=== PATIENT | female | born 2000 | race Caucasian/White ===

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

== ENCOUNTER 2021-11-09 15:05 | Emergency (ER) | payer SELFPAY ==
--- NOTE | 2021-11-09 15:06 | ED.UPPEXIN ---
HPI - Extremity Injury (Upper) General Chief Complaint: Dizziness Stated Complaint: dizzy Time Seen by Provider: 11/09/21 15:07 Source: patient and RN notes reviewed History of Present Illness HPI narrative: Patient is a 21-year-old female presents the urgent care with complaints of dizziness and off balance for 1 month. Patient states that on she did fall down 10 stairs due to the dizziness and did hit the back of her head. Patient denies of any recurrent headaches, nausea, vomiting or vision changes since the incident. Patient does have history of migraines. States that she has been taking ibuprofen. No other acute complaints. No acute distress noted. Patient aware of the plan of care. Some parts of this dictation were generated by voice recognition software and may contain typographical and/or grammatical inaccuracies. Related Data Allergies Allergy/AdvReac Type Severity Reaction Status Date / Time banana Allergy Severe Swelling Verified 11/09/21 15:48 of Lip/Tongue/Throat Review of Systems Review of Systems: CONSTITUTIONAL: Denies fever, chills, or sweats. EYES: Denies visual changes, redness, or discharge. ENT: Denies rhinorrhea, congestion, sore throat, or otalgia. CARDIOVASCULAR: Denies chest pain, palpitations, or edema. RESPIRATORY: Denies cough or dyspnea. GASTROINTESTINAL: Denies abdominal pain, nausea, vomiting, or diarrhea. GENITOURINARY: Denies dysuria or hematuria. SKIN: Denies rash or itching. MUSCULOSKELETAL: Denies back pain, joint pain, or myalgia. NEUROLOGIC: Denies headache, numbness, or weakness. Reports of intermittent dizziness All other systems reviewed are negative, except as documented in HPI. PMFSH Comments At the time of my signature, I reviewed and agree with the nursing past medical, surgical, social, and family history. There is no relevant family history pertinent to the patient complaint. Exam Narrative: GENERAL: This is a well-nourished, well-developed patient, in no apparent distress. HEAD: normocephalic, atraumatic. EYES: PERRL. Sclera clear/white. Vision is grossly intact. EARS: External ears normal, auditory canals clear and without drainage, TMs normal without perforation. Hearing grossly intact. NOSE: External nose normal with no obvious nasal discharge, nares without redness, no rhinorrhea. THROAT: Mucous membranes moist, posterior pharynx clear. NECK: Neck supple CARDIOVASCULAR: Regular rate and rhythm without murmurs, gallops, or rubs. RESPIRATORY: Clear to auscultation. Breath sounds equal bilaterally. No wheezes, rales, or rhonchi. SKIN: warm, intact with no suspicious lesions or rash, good texture and turgor. NEURO: awake, alert, and oriented to person, place and time. There were no obvious focal neurologic abnormalities. Patient ambulates without difficulty EXTREMITIES: No clubbing, cyanosis, or edema. Course Course Level of Care: Express Care Visit Vital Signs Vital signs: Vital Signs Temperature 97.9 F 11/09/21 15:15 Pulse Rate 90 11/09/21 15:15 Respiratory Rate 20 11/09/21 15:15 Blood Pressure 123/66 11/09/21 15:15 Pulse Oximetry 100 11/09/21 15:15 Temperature 97.9 F 11/09/21 15:15 Pulse Rate 90 11/09/21 15:15 Respiratory Rate 20 11/09/21 15:15 Blood Pressure 123/66 11/09/21 15:15 Pulse Oximetry 100 11/09/21 15:15 Reviewed. Orthostatics normal MDM - Extremity Injury (Upper) MDM Narrative Medical decision making narrative: Advised patient to use meclizine as needed for dizziness. Considering you have had chronic dizziness for 1 month, suggest you follow-up with your PCP for further evaluation. Symptoms could be related to weather change, vertigo, or other such issues needing further imaging. If you develop any increase in symptoms associated with severe headaches, changes in vision, or inability to ambulate due to dizziness?go to the emergency room. Follow-up with your PCP on Thursday. Differential Diag
[2021-11-09 15:15] VITALS: BP 123/66; PULSE 90; RESP 20; TEMP 36.6; O2SAT 100
[2021-11-09 15:35] VITALS: BP 120/66; PULSE 85
[2021-11-09 15:38] VITALS: BP 132/72; PULSE 83
[2021-11-09 15:41] VITALS: BP 125/63; PULSE 83
== END 2021-11-09 15:54 | disposition home or self-care (01) ==
PROVIDERS: Emergency Provider Nurse Practitioner Family; PCP Family Medicine
DX: R42 Dizziness and giddiness (principal)
CPT/HCPCS: 99213; G0463

== ENCOUNTER 2022-11-17 11:14 | Emergency (ER) | payer SELFPAY ==
[2022-11-17 11:24] VITALS: BP 143/66; PULSE 92; RESP 20; TEMP 36.8; O2SAT 100
--- NOTE | 2022-11-17 11:24 | ED.URI ---
HPI - URI/Sore Throat General Chief Complaint: Upper Respiratory Infection Stated Complaint: Sore Throat Source: patient and RN notes reviewed History of Present Illness HPI Narrative: 22-year-old female who presents urgent care with complaints of sore throat since Thursday. Patient reports having a fever last night at home. Denies any vomiting, abdominal pain, chest pain, shortness of breath, or ear pain. Some parts of this dictation were generated by voice recognition software and may contain typographical and/or grammatical inaccuracies. Related Data Home Medications Medication Instructions Recorded Confirmed No Home Medications 11/17/22 11/17/22 Allergies Allergy/AdvReac Type Severity Reaction Status Date / Time banana Allergy Severe Swelling Verified 11/17/22 11:31 of Lip/Tongue/Throat Review of Systems Review of Systems: Pertinent positives and pertinent negatives per HPI. PMFSH Comments At the time of my signature, I reviewed and agree with the nursing past medical, surgical, social, and family history. There is no relevant family history pertinent to the patient complaint. Exam Narrative: GENERAL: This is a well-nourished, well-developed patient, in no apparent distress. HEAD: normocephalic, atraumatic. EYES: PERRL. Sclera clear/white. Vision is grossly intact. EARS: External ears normal, auditory canals clear and without drainage, TMs normal without perforation. Hearing grossly intact. NOSE: External nose normal with no obvious nasal discharge, nares without redness, no rhinorrhea. THROAT: Mucous membranes moist, posterior pharynx erythematous. Tonsils are 2+ bilaterally. No exudate noted. NECK: Neck supple, non-tender without lymphadenopathy, masses or thyromegaly. CARDIOVASCULAR: Regular rate and rhythm without murmurs, gallops, or rubs. RESPIRATORY: Clear to auscultation. Breath sounds equal bilaterally. No wheezes, rales, or rhonchi. GASTROINTESTINAL: Abdomen soft, non-tender, nondistended. Bowel sounds are active. No hepato-splenomegaly, or palpable masses. No guarding. SKIN: warm, intact with no suspicious lesions or rash, good texture and turgor. NEURO: awake, alert, and oriented to person, place and time. There were no obvious focal neurologic abnormalities. EXTREMITIES: No clubbing, cyanosis, or edema. No joint tenderness, effusion, or edema noted. BACK: Nontender without deformity or crepitance. No flank tenderness. Course Course Level of Care: Express Care Visit Vital Signs Vital signs: Vital Signs Temperature 98.2 F 11/17/22 11:24 Pulse Rate 92 11/17/22 11:24 Respiratory Rate 20 11/17/22 11:24 Blood Pressure 143/66 H 11/17/22 11:24 Pulse Oximetry 100 11/17/22 11:24 Oxygen Delivery Room Air 11/17/22 11:24 Temperature 98.2 F 11/17/22 11:24 Pulse Rate 92 11/17/22 11:24 Respiratory Rate 20 11/17/22 11:24 Blood Pressure 143/66 H 11/17/22 11:24 Pulse Oximetry 100 11/17/22 11:24 Oxygen Delivery Room Air 11/17/22 11:24 Reviewed MDM - URI/Sore Throat MDM Narrative Medical decision making narrative: Rapid strep is negative in the office; however we will send to the lab for confirmation; there is a small percentage chance that it can come back positive; if it is, we will call you in 2-3days; and your prescription will be call in to your pharmacy. However, there is NO indication for antibiotic at this time. -Increase your fluids and Vitamin C. -Oral rinses such as: Salt water gargles and/or may use topical anesthetic (eg. Chloraseptic spray) or lozenges to relieve dryness or throat pain. -Take tylenol and ibuprofen as needed for pain and fever as directed. -Frequent hand washing or hand underwriting intern is one of the best ways to prevent spread of infection. -Follow up with primary care provider in 2-3 days if condition is not improving or seek ER visit if your child starts breathing fast/has trouble breathing, is not drinking enough fluids, muffle voice, di
== END 2022-11-17 12:00 | disposition home or self-care (01) ==
PROVIDERS: Emergency Provider Nurse Practitioner Family; PCP Family Medicine
DX: J02.9 Acute pharyngitis, unspecified (principal)
CPT/HCPCS: 87081; 87880; 99213; G0463

== ENCOUNTER 2023-04-24 16:29 | Emergency (ER) | payer SELFPAY ==
--- NOTE | 2023-04-24 16:31 | ED.SKABFB ---
HPI - Skin/Abscess/Foreign Bdy General Chief complaint: Skin/Abscess/Foreign Body Stated complaint: rash on back /stomach Time Seen by Provider: 04/24/23 16:30 Source: patient Mode of arrival: ambulatory Limitations: no limitations History of Present Illness HPI narrative: Mary is a 23-year-old female patient presenting to the clinic today with complaints of a rash on her back, arms, and stomach 3 weeks. She reports No known fever chills. No new changes in soaps or shampoos. She reports she did get a new cat. Also states that they are renovating her duplex next to hers. No one else has the same rash. Related Data Allergies Allergy/AdvReac Type Severity Reaction Status Date / Time banana Allergy Severe Swelling Verified 04/24/23 16:49 of Lip/Tongue/Throat Review of Systems Review of Systems: Pertinent positives per HPI. Patient denies any fever, chills, headache, visual changes, dizziness, cough, runny nose, sore throat, shortness of breath, chest pain, palpitations, nausea, vomiting, diarrhea, constipation, abdominal pain, or any urinary issues. PMFSH Comments At the time of my signature, I reviewed and agree with the nursing past medical, surgical, social, and family history. There is no relevant family history pertinent to the patient complaint. Exam Narrative: General: Well-developed, well nourished, in no apparent distress Head: Normocephalic, atraumatic. Cardio: Regular rate and rhythm, s1 and s2 normal, no murmur appreciated. Resp: Clear to auscultation bilaterally, no rhonchi, rales, wheezing or rubs. Integumentary: [place], warm, and dry, intact without lesion, red, raised, scaly crusty rash that is itchy to the abdomen and to the mid upper back also has rash to the forearms and upper arms bilaterally. Does have areas that appear to be possibly burrowing. Course Course Emergency Course: Portions of this record may have been created with voice recognition software. Level of Care: Express Care Visit Vital Signs Vital signs: Vital signs reviewed MDM - Skin/Abscess/Foreign Bdy MDM Narrative Medical decision making narrative: At the time of visit patient is resting comfortably on exam table. I suspect patient has contact dermatitis versus scabies infestation. Will send in prescription for prednisone, triamcinolone cream, and permethrin cream. Supportive measures were discussed with the patient she voiced understanding of the discharge instructions agrees to treatment plan. Differential Diagnosis Differential diagnosis: Likely abscess of skin or subcutaneous tissue, urticaria, allergic reaction to drug, cellulitis, eczema, insect bites, impetigo and contact dermatitis Discharge Plan Discharge Clinical Impression: Dermatitis Patient Disposition: Home, Self-Care Condition: Stable Instructions: Antibiotic Form, Scabies (ED), Dermatitis (ED) Additional Instructions: Apply triamcinolone cream as directed Take prednisone as directed Avoid taking hot showers. Apply permetherine cream as prescribed. Avoid scratching and this causes rash to spread May take benadryl 25-50mg every 6 hours as needed for itching. Follow up with your PCP in 3-5 days if symptoms persist or sooner if they worsen Go to the Emergency Room if symptoms worsen- fever, rash spreading with treatment, shortness of breath, tongue swelling, drooling, or chest pain Prescriptions: New triamcinolone acetonide 0.1 % cream 1 applic topical BID 7 Days Qty: 30 0RF prednisone 10 mg tablet 10 mg PO DAILY Qty: 30 0RF Rx Instructions: 60mg po daily on day 1, 40mg po daily on days 2-4, 30mg po daily on days 5-6, 20mg po daily on days 7-8, 10mg po daily on days 9-10 permethrin 5 % cream 1 applic topical Q14D Qty: 60 0RF Rx Instructions: apply second treatment 14 days after first treatment if live lice remain Follow-up/Referrals: Bobo,Donald Gore MD [Primary Care Provider] -
[2023-04-24 16:46] VITALS: BP 131/82; PULSE 102; RESP 18; TEMP 36.2; O2SAT 99
== END 2023-04-24 16:55 | disposition home or self-care (01) ==
PROVIDERS: Emergency Provider Nurse Practitioner Family; PCP Family Medicine
DX: L30.9 Dermatitis, unspecified (principal)
CPT/HCPCS: 99213; G0463

== ENCOUNTER 2023-06-25 10:35 | Emergency (ER) | payer SELFPAY ==
[2023-06-25 10:43] VITALS: BP 126/70; PULSE 105; RESP 18; TEMP 36.4; O2SAT 97
--- NOTE | 2023-06-25 10:43 | ED.EAR ---
HPI - Ear Problem General Stated complaint: Right Ear Pain Source: patient and RN notes reviewed History of Present Illness HPI Narrative: 23 yo F presents to urgent care with complaints of bilateral ear aches and the feeling the hearing is muffled. Pt reports some congestion. States this morning, she noticed a little blood in her right ear. Denies any fevers, chills, sore throat, or other complaints. Related Data Allergies Allergy/AdvReac Type Severity Reaction Status Date / Time banana Allergy Severe Swelling Verified 06/25/23 10:48 of Lip/Tongue/Throat Review of Systems Review of Systems: CONSTITUTIONAL: Denies fever, chills, or sweats. EYES: Denies visual changes, redness, or discharge. ENT: Denies sore throat CARDIOVASCULAR: Denies chest pain, palpitations, or edema. RESPIRATORY: Denies cough or dyspnea. GASTROINTESTINAL: Denies abdominal pain, nausea, vomiting, or diarrhea. GENITOURINARY: Denies dysuria or hematuria. SKIN: Denies rash or itching. MUSCULOSKELETAL: Denies back pain, joint pain, or myalgia. NEUROLOGIC: Denies headache, numbness, or weakness. Pertinent positives per HPI. PMFSH Comments At the time of my signature, I reviewed and agree with the nursing past medical, surgical, social, and family history. There is no relevant family history pertinent to the patient complaint. Exam Narrative: GENERAL: This is a well-nourished, well-developed patient, in no apparent distress. HEAD: normocephalic, atraumatic. EYES: Sclera clear/white. Vision is grossly intact. EARS: External ears normal, auditory canals clear and without drainage, TMs normal without perforation. Hearing grossly intact. Mild clear fluid behind TM NOSE: External nose normal with no obvious nasal discharge, nares without redness, no rhinorrhea. THROAT: Mucous membranes moist, posterior pharynx clear. NECK: Neck supple, non-tender without lymphadenopathy, masses or thyromegaly. CARDIOVASCULAR: Regular rate and rhythm without murmurs, gallops, or rubs. RESPIRATORY: Clear to auscultation. Breath sounds equal bilaterally. No wheezes, rales, or rhonchi. GASTROINTESTINAL: Abdomen soft, non-tender, nondistended. Bowel sounds are active. No hepato-splenomegaly, or palpable masses. No guarding. SKIN: warm, intact with no suspicious lesions or rash, good texture and turgor. NEURO: awake, alert, and oriented to person, place and time. There were no obvious focal neurologic abnormalities. EXTREMITIES: No clubbing, cyanosis, or edema. No joint tenderness, effusion, or edema noted. BACK: Nontender without deformity or crepitus. No flank tenderness. Course Course Level of Care: Express Care Visit Vital Signs Vital signs: Vital Signs Temperature 97.5 F L 06/25/23 10:43 Pulse Rate 105 H 06/25/23 10:43 Respiratory Rate 18 06/25/23 10:43 Blood Pressure 126/70 06/25/23 10:43 Pulse Oximetry 97 06/25/23 10:43 Oxygen Delivery Room Air 06/25/23 10:43 Temperature 97.5 F L 06/25/23 10:43 Pulse Rate 105 H 06/25/23 10:43 Respiratory Rate 18 06/25/23 10:43 Blood Pressure 126/70 06/25/23 10:43 Pulse Oximetry 97 06/25/23 10:43 Oxygen Delivery Room Air 06/25/23 10:43 Reviewed Medical Decision Making MDM Narrative Medical decision making narrative: Use the Flonase twice a day on each side. Follow up with your PCP next week if symptoms persist. Differential Diagnosis Differential Diagnosis: AOM, cerumen impaction, middle ear effusion Vital Signs Vital Signs: Vital Signs Temperature 97.5 F L 06/25/23 10:43 Pulse Rate 105 H 06/25/23 10:43 Respiratory Rate 18 06/25/23 10:43 Blood Pressure 126/70 06/25/23 10:43 Pulse Oximetry 97 06/25/23 10:43 Oxygen Delivery Room Air 06/25/23 10:43 Temperature 97.5 F L 06/25/23 10:43 Pulse Rate 105 H 06/25/23 10:43 Respiratory Rate 18 06/25/23 10:43 Blood Pressure 126/70 06/25/23 10:43 Pulse Oximetry 97 06/25/23 10:43 Oxy
[2023-06-25 10:58] VITALS: BP 126/70; PULSE 105; RESP 18; TEMP 36.4; O2SAT 97
== END 2023-06-25 10:55 | disposition home or self-care (01) ==
PROVIDERS: Emergency Provider Nurse Practitioner Family
DX: H92.03 Otalgia, bilateral (principal)
CPT/HCPCS: 99213; G0463

== ENCOUNTER 2024-01-24 11:55 | Emergency (ER) | payer OTHER, SELFPAY ==
[2024-01-24 12:12] VITALS: BP 131/67; PULSE 101; RESP 20; TEMP 37.2; O2SAT 98
--- NOTE | 2024-01-24 13:10 | ED.EAR ---
HPI - Ear Problem General Chief complaint: Ear Stated complaint: left ear Time Seen by Provider: 01/24/24 12:55 Source: patient, RN notes reviewed and old records reviewed Mode of arrival: ambulatory Limitations: no limitations History of Present Illness HPI Narrative: 23 year old female who presents to [facility] care with complaints of left ear pain 5 days, reports that it feels clogged and painful with symptoms progressively worsening, has not been swimming. Patient denies any cough or any shortness of breath, admits to some sinus congestion and drainage and some low grade temperatures. MD Complaint: ear pain Location: left ear Duration: constant Severity: severe Discharge from ear: Reports no Treatment prior to arrival: oral analgesic (ibuprofen) Related Data Home Medications Medication Instructions Recorded Confirmed amitriptyline 10 mg tablet 10 mg PO DAILY 01/24/24 01/24/24 escitalopram oxalate 10 mg tablet 10 mg PO DAILY 01/24/24 01/24/24 sumatriptan succinate 50 mg tablet See Rx Instructions .Route .COMPLEX 01/24/24 01/24/24 Allergies Allergy/AdvReac Type Severity Reaction Status Date / Time banana Allergy Severe Swelling Verified 01/24/24 12:28 of Lip/Tongue/Throat Review of Systems Review of Systems: CONSTITUTIONAL:Positive for malaise, chills, sweats, low grade fever. EYES: Denies visual changes, redness, or discharge. ENT: Reports rhinorrhea, congestion, sinus pain,left otalgia and no sore throat CARDIOVASCULAR: Denies chest pain, palpitations, or edema. RESPIRATORY: Reports no cough.? Denies dyspnea. GASTROINTESTINAL: Denies abdominal pain, nausea, vomiting, diarrhea SKIN: Denies rash or itching. MUSCULOSKELETAL: Denies myalgia. NEUROLOGIC: Denies headache. All systems reviewed & are unremarkable except as noted in HPI and below PMFSH Past Medical History Medical History (Updated 01/26/24 @ 08:02 by Leeanna Bonilla NP) Depression Hx of migraines Surgical History Surgical History (Updated 01/26/24 @ 07:59 by Leeanna Bonilla NP) Hx of elbow surgery internal fixation with screws left Social History Social History (Updated 01/26/24 @ 08:00 by Leeanna Bonilla NP) Smoking status: Never smoker Alcohol intake: current Alcohol use details: social Substance use type: does not use Living arrangements: with family Gender identity (if verbalized by the patient): Female Comments At time of signature, agree with nursing past medical, surgical, social and family history. There is no relevant family history pertinent to the presenting complaint Exam Narrative: GENERAL: Well-appearing, well-nourished, and in no acute distress. HEAD: Normocephalic EYES: PERRLA, conjunctivae clear ENT: Nares clear, turbinates edematous and erythematous, clear discharge. Mucous membranes moist.Left TM red and bulging some excoriation of left ear canal with no acute swelling, Right TM pearly cantu with dull light reflex; no tragal tenderness. Oropharynx erythematous without lesions. Tonsils not enlarged and without exudate, no drooling, no hoarseness, no trismus, uvula midline.post nasal drainage noted NECK: Supple. No lymphadenopathy CHEST: Clear to auscultation, breath sounds equal. No wheezing, rhonchi, rales, or stridor. No respiratory distress, speaks in full sentences.[id number]% on room air HEART: Regular rate and rhythm. No murmur heard. SKIN: Warm, dry, no rash. NEURO: Alert and oriented x3. PSYCH: Normal mood and affect Course Course Emergency Course: Patient is aware of diagnosis, understands and agrees to treatment plan.? Anticipatory guidance given.? Patient agrees to follow-up as directed and is aware of reasons to seek care at the emergency department. Portions of this record may have been created with voice recognition software Level of Care: Express Care Visit Vital Signs Vital signs: Vital Signs Temperature 37.2 C 01/24/24
== END 2024-01-24 13:40 | disposition home or self-care (01) ==
PROVIDERS: Emergency Provider Registered Nurse; PCP Family Medicine
DX: H66.92 Otitis media, unspecified, left ear (principal); H60.92 Unspecified otitis externa, left ear; F32.A Depression, unspecified
CPT/HCPCS: 99213; G0463

== ENCOUNTER 2024-09-23 17:44 | Emergency (ER) | payer OTHER, SELFPAY ==
--- NOTE | ~2024-09-23 | XR_ITS ---
HISTORY: pain/bruising, no new injury COMPARISON: None TECHNIQUE: 3 views of the left elbow were performed FINDINGS: No acute fracture is identified. Multiple screw fixation is identified with extra-articular bone formation, likely chronic. No elevation of the anterior or posterior fat pads are identified to suggest an acute supracondylar f racture. Overlying soft tissues are unremarkable. Bone mineralization is age-appropriate. IMPRESSION: No acute findings within the left elbow, as detailed above. Reviewed, dictated and finalized at location A. RACT ASSISTANT
--- OUTSIDE RECORDS SUMMARY | 2024-09-23 17:46 | XMS_ITS | Clinical Summary ---
Author Organization [facility] Address [address] [place] [address] Care Team Providers Care Gauger Chief Name Role Phone Donald Broussard MD Primary Care Provider [phone] Allergies Active Allergy Reactions Criticality Noted Date Comments Banana Edema,Anaphylaxis High 09/24/2018 Cantaloupe Edema Medium 09/24/2018 Medications bacitracin 500 unit/gram ointment Apply topically 2 (two) times a day 120 g 3 Active Additional Information Patient not taking.Reported on 11/02/2023 Slynd tablet tablet Take 1 each (4 mg total) by mouth daily Active HYDROcodone-cindy taminophen (NORCO) 5-325 mg per tabletIndicatio ns:Pain Take 1 tablet by mouth every 6 (six) hours as needed for pain 20 tablet 4 Active ibuprofen (ADVIL,MOTRIN) 600 mg tabletIndicatio ns:Pain Take 1 tablet (600 mg total) by mouth 3 (three) times a day Take with food. 30 tablet 4 Active Active Problems Problem Noted Date Diagnosed Date RICK (generalized anxiety disorder) 11/02/2023 Psychophysiological insomnia 11/02/2023 Migraine headache 11/01/2014 Encounters Date Type Department Care Team Description 07/23/2024 10:51 PM HAND OUTSIDE CUTTER - 07/24/2024 1:29 AM HAND OUTSIDE CUTTER Emergency [facility] Emergency Department [address] [place] [address] Miguel Godoy MD Abdominal pain (Primary Dx); Cyst of right ovary; Bilious vomiting with nausea Discharge Disposition: Discharge to home or self care 06/27/2024 Telephone [facility]ics [facility] Sports Medicine [address] [place] [phone] Ann Cao MA 06/24/2024 10:13 PM HAND OUTSIDE CUTTER - 06/24/2024 11:28 PM HAND OUTSIDE CUTTER Emergency [facility] Emergency Department [address] [place] [address] Donald Grove MD Elbow pain, chronic, left (Primary Dx); 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) Discharge Disposition: Discharge to home or self care 06/23/2024 Telephone [facility] Family Medicine at [place] [address] [place] [phone] Donald Broussard MD 1st no show letter sent 06/23/24 from Last 3 Months Immunizations Name Administration Dates Next Due DTaP 03/25/2002,2001,2001 DTaP 5 Pertussis 02/24/2011 HPV9 06/05/2020 Hep A, Pediatric 09/30/2011,02/24/2011 Hep B, Adolescent or Pediatric 2,05/02/2011,02/24/2011,03/25,2001,2001 HiB 03/25/2002,2001,2001 IPV 08/26/2012, 2,02/24/2011,11/04,2001 Influenza, Live, Intranasal, Quadrivalent 05/02/2013 Influenza, Quadrivalent, Spl it, Preservative Free, Intramuscular 06/03/2021,06/05/2020 Influenza, Trivalent, Preser vative Free, Intramuscular 08/26/2012,05/02/2011 Influenza, Unspecified 05/10/2023(Deferr ed: Patient Refused),05/10/2022(Deferred: Patient Refused) MMR 02/24/2011 MMRV 09/30/2011 Meningococcal B, OMV (Bexsero) 06/05/2020 Meningococcal MCV4P (Menactra) 06/05/2020 Td, adsorbed 08/26/2012 Tdap 07/14/2023,05/02/2011 Varicella 02/24/2011 Surgical History Surgery Date Site/Laterality Comments ARM SURGERY 08/26/2023 Left screws CHOLECYSTECTOMY Medical History Medical History Date Comments Migraines Anxiety 2019 Depression 2019 Family History Medical History Relation Name Comments Depression Brother Serafin Pereyra Arthritis Father Abimael Pereyra Migraines Father Abimael Pereyra Family histo ry of migraine headaches - (Added by TW Conv) Rashes / Skin problems Father Abimael Pereyra Cancer Maternal Grandmother Ivania Brewer Diabetes Maternal Grandmother Ivania Brewer Depression Mother Marty Grullon Diabetes Mother Marty Grullon Mental illness Mother Marty Grullon Migraines Mother Marty Grullon Family histor y of migraine headaches - (Added by TW Conv) Epilepsy Sister 1 Family history of epilepsy - (Added by TW Conv) Learning disabilities Sister 2 Antonio Hortamitt Relation Name Status Comments Brother Serafin Pereyra Father Abimael Pereyra Maternal Grandmother Ivania Brewer Mother Marty Grullon Sister 1 Sister 2 Antonio Pereyra Social History Tobacco Use Types Packs/Day Years Used Date Smoking Tobacco: Former Vaping Q uit: 08/10/2023 Smokeless Tobacco: Never Tobacco Cessation:Counseling Given: Not Answered Alcohol Use Standard Drinks/Week Comments Never 0 (1 standard drink = 0.6 oz pur e alcohol) AUDIT-C Answer Date Recorded Q1: How often do you have a drink containing alc ohol? Monthly or less 04/18/2024 Q2: How many drinks containi ng alcohol do you have on a typical day when you are drinking? 1 or 2 04/18/2024 Frequency of Binge Drinking Not on file 04/2024 PHQ-2 Answer Date Recorded PHQ-2 Total Score (If total score is 3 or more points, staff should administer the PHQ-9) 4 12/25/2022 Personal Safety Answer Date Recorded Have you ever been in or are you currently in a harmful physical or emotional relationship or is someone making you feel afraid or unsafe? Denies 07/23/2024 Comments No Sex and Gender Information Value Date Recorded Sex Assigned at Not on file Legal Sex Female 11:20 AM HAND OUTSIDE CUTTER Gender Identity Female 12/23/2022 9:46 PM CDT Sexual Orientation Straight 12/23/2022 9: 46 PM CDT Obstetrics History Last Filed Vital Signs Vital Sign Reading Time Taken Comments Blood Pressure 140/80 07/24/2024 1:15 AM HAND OUTSIDE CUTTER Pulse 88 07/24/2024 1:15 AM HAND OUTSIDE CUTTER Temperature 36.8 C (98.2 F) 07/23/2024 10:48 PM HAND OUTSIDE CUTTER Respiratory Rate 18 07/23/2024 10:48 PM HAND OUTSIDE CUTTER Oxygen Saturation 97% 07/24/2024 1:15 AM HAND OUTSIDE CUTTER Inhaled Oxygen Concentration - - Weight 99.8 kg (220 lb) 07/23/2024 10:48 PM HAND OUTSIDE CUTTER Height 167.6 cm (5' 6 ) 07/23/2024 10:48 PM HAND OUTSIDE CUTTER Body Mass Index 35.51 07/23/2024 10:48 PM HAND OUTSIDE CUTTER Plan of Treatment Health Maintenance Due Date Last Done Comments Cervical Cancer Screening 2001 Chlamydia and Gonorrhea (GC/CT) Screening 2001 Hepatitis C Screening 2001 Regular Well Visit/Exam 18-64 2019 HPV Vaccines (2 - 3-dose series) 07/03/2020 06/05/2020 Meningococcal B Vaccine (2 of 2 - Risk Bexsero 2-dose series) 07/03/2020 06/05/2020 Depression Screening 12/26/2023 12/25/2022, 12/26/19 23 Covid-19 Vaccine (2 - season) 2024 11/27/2020 Influenza Vaccine (#1) 2024 , 06/05/2020, 05/02/2013, Additional history exists DTaP/Tdap/Td Vaccine (8 - Td or Tdap) 07/14/2033 07/14/2023, 08/26/2012, 05/02/2011, Additional history exists Varicella Vaccines Completed 09/30/2011, 02/24/2011 Pneumococcal vaccine <65 Aged Out No longer eligible based on patient's age to complete this topic Procedures Procedure Name Priority Date/Time Associated Diagnosis Comments CT ABDOMEN PELVIS W CONTRAST ED 07/24/2024 12:43 AM HAND OUTSIDE CUTTER URINALYSIS, MICROSCOPIC ONLY STAT 07/23/2024 11:54 PM HAND OUTSIDE CUTTER HCG, URINE, QUALITATIVE STAT 07/23/2024 11:54 PM HAND OUTSIDE CUTTER URINALYSIS AND REFLEX TO MICROSCOPIC AND CULTURE STAT 07/23/2024 11:54 PM HAND OUTSIDE CUTTER CREATINE KINASE (CK), TOTAL STAT 07/23/2024 11:12 PM HAND OUTSIDE CUTTER EGFR STAT 07/23/2024 11:11 PM HAND OUTSIDE CUTTER DIFFERENTIAL AUTO STAT 07/23/2024 11: 11 PM HAND OUTSIDE CUTTER LACTATE Routine 07/23/2024 11:11 PM HAND OUTSIDE CUTTER LIPASE STAT 07/23/2024 11:11 PM HAND OUTSIDE CUTTER MAGNESIUM Routine 07/23/2024 11:11 PM HAND OUTSIDE CUTTER COMPREHENSIVE METABOLIC PANEL STAT 07/23/2024 11:11 PM HAND OUTSIDE CUTTER CBC WITH AUTO DIFFERENTIAL STAT 07/23/2024 11:11 PM HAND OUTSIDE CUTTER INFLUENZA A/B, RSV, AND COVID-19 PCR Routine 07/23/2024 11:11 PM HAND OUTSIDE CUTTER XR ELBOW LEFT 2 OR MORE VIEWS ED 06/24/2024 11:00 PM HAND OUTSIDE CUTTER from Last 3 Months Results * CT Abdomen Pelvis W Contrast (07/24/2024 12:43 AM HAND OUTSIDE CUTTER) Anatomical Region Laterality Modality Body N/A Computed Tomogra phy 07/24/2024 12:5 6 AM HAND OUTSIDE CUTTER Narrative 07/24/2024 1:00 AM HAND OUTSIDE CUTTER EXAM DESCRIPTION: CT ABDOMEN PELVIS W CONTRAST REASON FOR STUDY: LUQ abdominal pain, LUQ pain Pt vomiting bile x 3 days states unable to keep any food or water down. Hx of cholecystectomy No hx of cancer TECHNIQUE: CT scan of the abdomen and pelvis performed with intravenous and without oral contrast using helical scanning technique with dynamic intravenous contrast injection. Reconstructed coronal and sagittal MPR images reviewed. All images stored on PACS. Automated exposure control was used as a dose optimization technique for this examination. CONTRAST TYPE/DOSE: 100mL of IOVERSOL 350 MG IODINE/ML INTRAVENOUS SYRINGE injected via intravenous COMPARISON: 03/14/2024 FINDINGS: LOWER CHEST: No significant pulmonary abnormalities. No effusion. LIVER: Normal size. No identified cystic or solid masses. GALLBLADDER: Surgically absent. BILE DUCTS: No intrahepatic or extrahepatic ductal dilatation. SPLEEN: Enlarged at 14.3 cm. PANCREAS: No identified cystic or solid masses. No significant calcifications. No adjacent inflammation or peripancreatic fluid collections. Pancreatic duct not dilated. ADRENALS: Normal. KIDNEYS/URINARY TRACT: No identified significant cystic or solid masses. No visualized stones. No hydronephrosis or hydroureter. Symmetric enhancement. Urinary bladder is unremarkable. GI: No dilated bowel loops. No obvious wall thickening. Normal appendix. No significant diverticular disease. PERITONEUM: No ascites or free air. RETROPERITONEUM: No mass or adenopathy. REPRODUCTIVE: 3.5 cm cyst right ovary. VASCULATURE: No abdominal aortic aneurysm. MUSCULOSKELETAL: No significant abnormality. OTHER: 2.6 cm periumbilical hernia containing only fat. IMPRESSION: Surgical absence of the gallbladder. Mild splenomegaly. 3.5 cm cyst right ovary. 2.6 cm periumbilical hernia containing only fat. THIS IS AN ELECTRONICALLY VERIFIED FINAL REPORT 07/24/2024 1:00 AM - Electronically signed by Agustín Pond M.D. KT: SHAN Report ID: [id number] Reading Location: [id number] Procedure Note Agustín oPnd MD - 07/24/2024 EXAM DESCRIPTION: CT ABDOMEN PELVIS W CONTRAST REASON FOR STUDY: LUQ abdominal pain, LUQ pain Pt vomiting bile x 3 days states unable to keep any food or water down.Hx of cholecystectomy No hx of cancer TECHNIQUE: CT scan of the abdomen and pelvis performed with intravenousand without oral contrast using helical scanning technique with dynamic intravenous contrast injection. Reconstructed coronal and sagittal MPRimages reviewed. All images stored on PACS. Automated exposure control was usedas a dose optimization technique for this examination. CONTRAST TYPE/DOSE: 100mL of IOVERSOL 350 MG IODINE/ML INTRAVENOUSSYRINGE injected via intravenous COMPARISON: 03/14/2024 FINDINGS: LOWER CHEST: No significant pulmonary abnormalities. No effusion. LIVER: Normal size. No identified cystic or solid masses. GALLBLADDER: Surgically absent. BILE DUCTS: No intrahepatic or extrahepatic ductal dilatation. SPLEEN: Enlarged at 14.3 cm. PANCREAS: No identified cystic or solid masses. No significant calcifications. No adjacent inflammation or peripancreatic fluidcollections. Pancreatic duct not dilated. ADRENALS: Normal. KIDNEYS/URINARY TRACT: No identified significant cystic or solid masses.No visualized stones. No hydronephrosis or hydroureter. Symmetricenhancement. Urinary bladder is unremarkable. GI: No dilated bowel loops. No obvious wall thickening. Normalappendix. No significant diverticular disease. PERITONEUM: No ascites or free air. RETROPERITONEUM: No mass or adenopathy. REPRODUCTIVE: 3.5 cm cyst right ovary. VASCULATURE: No abdominal aortic aneurysm. MUSCULOSKELETAL: No significant abnormality. OTHER: 2.6 cm periumbilical hernia containing only fat. IMPRESSION: Surgical absence of the gallbladder. Mild splenomegaly. 3.5 cm cyst right ovary. 2.6 cm periumbilical hernia containing only fat. THIS IS AN ELECTRONICALLY VERIFIED FINAL REPORT 07/24/2024 1:00 AM - Electronically signed by Agustín Pond M.D. KT: KT Report ID: [id number] Reading Location: [place] [address] Miguel Godoy MD IMG CT PROCEDURES Final Resul t * (ABNORMAL) Urinalysis reflex to microscopic and culture Urine, bladder (07/23/2024 11:54 PM HAND OUTSIDE CUTTER) Color, ur Yellow Yellow Clarity, ur Clear Clear [facility] ([place]) Specific gravity, ur 1.036(H) 1.003 - 1.030 [facility] ([place]) pH, urine 6.5 [facility] ([place]) Comment: Interpretive Data U rine pH is affected by diet, medications, systemic acid-base disturbances, and renal tubular function. pH may affect urinary stone formation. For example, urine pH below 6.0 may help reduce the tendency for calcium phosphate stones and pH greater than 6.0 may reduce the tendency for uric acid stone formation. Source: [facility] [employer] Current Interpretive Data was last revised on 2017 Protein, ur ql 1+(A) Negative [facility] ([place]) Glucose, ur ql Negative Negative [facility] ([place]) Ketones, ur Trace Negative [facility] ([place]) Bilirubin, ur Negative Negative [facility] ([place]) Blood, ur 1+(A) Negative [facility] ([place]) Urobilinogen, ur >=8.0(A) <2.0 mg/dL [facility] ([place]) Nitrite, ur Negative Negative [facility] ([place]) Leukocyte esterase, ur Negative Negative [facility] ([place]) UA reflex comment Reflex to microscopic UA will be performed. [facility] ([place]) Urine, bladder 07/23/2024 11 :54 PM HAND OUTSIDE CUTTER 07/23/2024 11:56 PM HAND OUTSIDE CUTTER us Miguel Godoy MD LAB MICROBIOLOGY - GENERAL OR DERABLES Final Result Performing Organization Address [facility] Co de Phone Number [facility] ([place]) [address] [facility] [place] [address] * hCG, urine, qualitative (07/23/2024 11:54 PM HAND OUTSIDE CUTTER) HCG, ur Negative Negative Urine 07/23/2024 11:5 4 PM HAND OUTSIDE CUTTER 07/23/2024 11:56 PM HAND OUTSIDE CUTTER us Miguel Godoy MD LAB URINE ORDERABLES Final Re sult Performing Organization Address City/[facility]/ZIP Co de Phone Number [facility] ([place]) [address] Department [place] [address] * (ABNORMAL) Urinalysis, microscopic only (07/23/2024 11:54 PM HAND OUTSIDE CUTTER) WBC, ur 0-5 0 - 5 /HPF RBC, ur 21-50(A) 0 - 2 /HPF [facility] ([place]) Epithelial cells, squamous, ur 1-5 0 - 5 /HPF [facility] ([place]) Bacteria, ur Trace(A) [facility] ([place]) Mucous, ur Present(A) [facility] ([place]) Culture Reflex Comment Reflex conditions for urine culture (WBC >10) not met. [facility] ([place]) Urine, bladder 07/23/2024 11 :54 PM HAND OUTSIDE CUTTER 07/23/2024 11:56 PM HAND OUTSIDE CUTTER Miguel Godoy MD LAB URINE ORDERABLES Final Re sult Performing Organization Address City/[facility]/ZIP Co de Phone Number [facility] ([place]) [address] [place] [address] * Creatine kinase (CK), total (07/23/2024 11:12 PM HAND OUTSIDE CUTTER) Pathologist [facility] CK 73 30 - 200 Units/L Blood 07/23/2024 11:1 2 PM HAND OUTSIDE CUTTER 07/23/2024 11:24 PM HAND OUTSIDE CUTTER us Miguel Godoy MD LAB BLOOD ORDERABLES Final Re sult Performing Organization Address City/[facility] Co de Phone Number [facility] ([place]) [address] [place] [address] Department [place] [address] * Influenza A/B, RSV, and COVID-19 PCR Nasopharyngeal (07/23/2024 11:11 PM HAND OUTSIDE CUTTER) Pathologist [facility] COVID-19 RNA Negative Negative Influenza A RNA Negative Negative [facility] ([place]) Influenza B RNA Negative Negative [facility] ([place]) RSV RNA Negative Negative [facility] ([place]) Comment: Interpretive data: Testing performed by [facility]. This test is performed using the [employer] Xpert Xpress CoV-2/Flu/RSV plus assay. This is a multiplex, real- time reverse transcriptase PCR assay intended for the qualitative detection of nucleic acid from SARS-CoV-2, influenza A, influenza B, and respiratory syncytial virus. This assay has been cleared by the [place] Food and Drug administration. The performance characteristics have been verified by the [facility]. Results must be considered in the clinical context, and a negative result does not rule out infection. Interpretive Data last revised 2023 Nasopharyngeal 07/23/2024 11 :11 PM HAND OUTSIDE CUTTER 07/23/2024 11:24 PM HAND OUTSIDE CUTTER Narrative [facility] ([place]) - 07/24/2024 12:04 AM HAND OUTSIDE CUTTER Is the Patient experiencing symptoms consistent with COVID?->Yes Miguel Godoy MD LAB MICROBIOLOGY - GENERAL OR DERABLES Final Result [facility] ([place]) [address] [place] [address] [place] [address] * Lactate (07/23/2024 11:11 PM HAND OUTSIDE CUTTER) Lactate 0.7 0.7 - 2.0 mmol/L Blood 07/23/2024 11:1 1 PM HAND OUTSIDE CUTTER 07/23/2024 11:28 PM HAND OUTSIDE CUTTER Miguel Godoy MD LAB BLOOD ORDERABLES Final Re sult Performing Organization Address City/[facility]/ZIP Co de Phone Number [facility] ([place]) [address] [place] [address] [place] [address] * eGFR (07/23/2024 11:11 PM HAND OUTSIDE CUTTER) eGFR >90 >=60 mL/min/1. 73 m2 Comment: Interpretive Data Reference Interval Normal >/= 90 mL/min/1.73m2 Mildly decreased* 60 - 89 mL/min/1.73m2 Mildly to moderately decreased 45 - 59 mL/min/1.73m2 Moderately to severely decreased 30 - 44 mL/min/1.73m2 Severely decreased 15 - 29 mL/min/1.73m2 Kidney Failure < 15 mL/min/1.73m2 *Relative to young adult level Estimated glomerular filtration rate is determined by the 2020 CKD-EPI equation recommended by the National Kidney Foundation (A Unifying Approach to GFR Estimation: Recommendations of the NKF-ASK Task Force on Reassessing the Inclusion of Race in Diagnosing Kidney Disease, JASN 2020). The CKD-EPI equation should not be used for patients with unstable renal function and has not been validated in children and those over 70. Current interpretive data was last reviewed 2021. Blood 07/23/2024 11:1 1 PM HAND OUTSIDE CUTTER 07/23/2024 11:24 PM HAND OUTSIDE CUTTER us Miguel Godoy MD LAB BLOOD ORDERABLES Final Re sult [facility] [address] [place] [address] * Differential, auto (07/23/2024 11:11 PM HAND OUTSIDE CUTTER) Neutrophil abs 3.5 1.5 - 6.5 K/cumm Imm gran abs 0.0 0.0 - 0.1 K/cumm [facility] ([place]) Lymphocyte abs 1.1 0.8 - 3.3 K/cumm [facility] ([place]) Monocyte abs 0.6 0.2 - 0.8 K/cumm [facility] ([place]) Eosinophil abs 0.1 0.0 - 0.5 K/cumm [facility] ([place]) Basophil abs 0.0 0.0 - 0.1 K/cumm [facility] ([place]) Neutrophil pct 65.7 % [facility] ([place]) Comment: Interpretive Data Percent cell count reference ranges are not reported, since discordance with absolute values may lead to misinterpretation of CBC data. Current Interpretive Data was last revised on 2017. Imm gran pct 0.4 % [facility] ([place]) Comment: Interpretive Data Percent cell count reference ranges are not reported, since discordance with absolute values may lead to misinterpretation of CBC data. Current Interpretive Data was last revised on 2017. Lymphocyte pct 20.8 % [facility] ([place]) Comment: Interpretive Data Percent cell count reference ranges are not reported, since discordance with absolute values may lead to misinterpretation of CBC data. Current Interpretive Data was last revised on 2017. Monocyte pct 10.8 % [facility] ([place]) Comment: Interpretive Data Percent cell count reference ranges are not reported, since discordance with absolute values may lead to misinterpretation of CBC data. Current Interpretive Data was last revised on 2017. Eosinophil pct 1.5 % [facility] ([place]) Comment: Interpretive Data Percent cell count reference ranges are not reported, since discordance with absolute values may lead to misinterpretation of CBC data. Current Interpretive Data was last revised on 2017. Basophil pct 0.8 % [facility] ([place]) Comment: Interpretive Data Percent cell count reference ranges are not reported, since discordance with absolute values may lead to misinterpretation of CBC data. Current Interpretive Data was last revised on 2017. Blood 07/23/2024 11:1 1 PM HAND OUTSIDE CUTTER 07/23/2024 11:24 PM HAND OUTSIDE CUTTER us Miguel Godoy MD LAB BLOOD ORDERABLES Final Re sult [facility] ([place]) [address] [place] [address] * CBC with auto differential (07/23/2024 11:11 PM HAND OUTSIDE CUTTER) WBC 5.3 3.8 - 9.9 K/cumm Hgb 14.3 11.9 - 15.5 g/dL [facility] ([place]) Hct 42.2 35.6 - 45.5 % [facility] ([place]) Plt 216 150 - 400 K/cumm [facility] ([place]) MPV 10.1 9.1 - 12.3 fL [facility] ([place]) RBC 4.70 3.90 - 5.20 M/cumm [facility] ([place]) MCV 89.8 81.3 - 96.4 fL [facility] ([place]) MCH 30.4 27.1 - 33.3 pg [facility] ([place]) MCHC 33.9 32.3 - 35.7 g/dL [facility] ([place]) RDW CV 11.9 11.1 - 14.9 % [facility]) RDW SD 39.2 35.7 - 48.1 fL [facility] ([place]) NRBC abs 0.00 0.00 - 0.01 K/cumm [facility] ([place]) Blood 07/23/2024 11:1 1 PM HAND OUTSIDE CUTTER 07/23/2024 11:24 PM HAND OUTSIDE CUTTER Miguel Godoy MD LAB BLOOD ORDERABLES Final Re sult Performing Organization Address City/[facility]/ZIP Co de Phone Number [facility] ([place]) 1 [facility] [place] [address] * Magnesium (07/23/2024 11:11 PM HAND OUTSIDE CUTTER) Magnesium 1.8 1.4 - 2.5 mg/dL Blood 07/23/2024 11:1 1 PM HAND OUTSIDE CUTTER 07/23/2024 11:24 PM HAND OUTSIDE CUTTER Miguel Godoy MD LAB BLOOD ORDERABLES Final Re sult Performing Organization Address [facility] Co de Phone Number [facility] ([place]) [address] [facility] [place] [address] * Lipase (07/23/2024 11:11 PM HAND OUTSIDE CUTTER) Lipase 17 10 - 99 Units/L Blood 07/23/2024 11:1 1 PM HAND OUTSIDE CUTTER 07/23/2024 11:24 PM HAND OUTSIDE CUTTER Miguel Godoy MD LAB BLOOD ORDERABLES Final Re sult Performing Organization Address City/[facility]/ZIP Co de Phone Number [facility] ([place]) [address] [facility] [place] [address] * (ABNORMAL) Comprehensive metabolic panel (07/23/2024 11:11 PM HAND OUTSIDE CUTTER) Sodium 134(L) 135 - 145 mmol/L Potassium, pl 3.7 3.3 - 4.9 mmol/L [facility] ([place]) Chloride 101 97 - 110 mmol/L [facility] ([place]) CO2 22 22 - 32 mmol/L [facility] ([place]) Anion gap 11 2 - 15 mmol/L [facility] ([place]) BUN 11 6 - 25 mg/dL [facility] ([place]) Creatinine 0.58(L) 0.60 - 1.10 mg/dL [facility] ([place]) Glucose 101 70 - 199 mg/dL [facility] ([place]) Comment: Interpretive Data Fasting glucose >/= 126 mg/dl is diagnostic for diabetes. Fasting is defined as no caloric intake for at least 8 hours. Fasting glucose between 100 mg/dl to 125 mg/dl is diagnostic of prediabetes. In a patient with classic symptoms of hyperglycemia or hyperglycemic crisis, a random glucose >/= 200 mg/dl is diagnostic for diabetes. In the absence of unequivocal hyperglycemia, results should be confirmed by repeat testing. The classification and Diagnosis of Diabetes Diabetes Care 2021; 46: S19-S40. Current interpretive data was last revised 2022. Calcium 8.8 8.5 - 10.3 mg/dL [facility] ([place]) Bilirubin, total 0.4 0.1 - 1.2 mg/dL [facility] ([place]) Protein, pl 7.0 6.5 - 8.5 g/dL [facility] ([place]) Albumin 3.9 3.5 - 5.0 g/dL [facility] ([place]) Alk phos 86 40 - 130 Units/L [facility] ([place]) ALT 21 7 - 45 Units/L [facility] ([place]) AST 20 10 - 45 Units/L [facility] ([place]) Blood 07/23/2024 11:1 1 PM HAND OUTSIDE CUTTER 07/23/2024 11:24 PM HAND OUTSIDE CUTTER us Miguel Godoy MD LAB BLOOD ORDERABLES Final Re sult [facility] ([place]) [address] [facility] [place] [address] * XR Elbow Left 2 or More Views (06/24/2024 11:00 PM HAND OUTSIDE CUTTER) Anatomical Region Laterality Modality Upper Extremities, Elbow Left Compute d Radiography 06/24/2024 11:2 9 PM HAND OUTSIDE CUTTER Narrative 06/24/2024 11:30 PM HAND OUTSIDE CUTTER EXAM DESCRIPTION: XR ELBOW LEFT 2 VIEWS REASON FOR STUDY: swelling Pt had an elbow surgery on her left elbow in August. Pt noticed at 1400 that it was swelling. Pt has 4 screws in her elbow. No known injury TECHNIQUE: 2 radiographic view(s) of the left elbow . COMPARISON: None FINDINGS: BONES/JOINTS: There is no acute fracture, malalignment or osseous abnormality. The joint spaces are normal. 4 surgical screws traverse the lateral epicondyle and capitellum. There is some osteophytic spurring about the distal humerus and the proximal radius and ulna. Multiple small corticated bone fragments are seen along the lateral epicondyle. SOFT TISSUES: Within normal limits. IMPRESSION: No acute osseous abnormality. THIS IS AN ELECTRONICALLY VERIFIED FINAL REPORT 06/24/2024 11:30 PM - Electronically signed by Agustín Pond M.D. KT: SHAN Report ID: [id number] Reading Location: [id number] Procedure Note Agustín Pond MD - 06/24/2024 EXAM DESCRIPTION: XR ELBOW LEFT 2 VIEWS REASON FOR STUDY: swelling Pt had an elbow surgery on her left elbow in August. Pt noticed at 1400that it was swelling. Pt has 4 screws in her elbow. No known injury TECHNIQUE: 2 radiographic view(s) of the left elbow . COMPARISON: None FINDINGS: BONES/JOINTS: There is no acute fracture, malalignment or osseousabnormality. The joint spaces are normal. 4 surgical screws traverse the lateral epicondyle and capitellum. Thereis some osteophytic spurring about the distal humerus and the proximal radiusand ulna. Multiple small corticated bone fragments are seen along the lateral epicondyle. SOFT TISSUES: Within normal limits. IMPRESSION: No acute osseous abnormality. THIS IS AN ELECTRONICALLY VERIFIED FINAL REPORT 06/24/2024 11:30 PM - Electronically signed by Agustín Pond M.D. KT: SHAN Report ID: [id number] Reading Location: [place] [address] Donald Grove MD IMG XR PROCEDURES Final Res ult from Last 3 Months Insurance [facility] Care Teams Gauger Chief Relationship Specialty Start Date End Date Donald Broussard MD PCP - General Family Medicine 12/25/22
--- OUTSIDE RECORDS SUMMARY | 2024-09-23 17:46 | XMS_ITS | Clinical Summary ---
Author Organization [facility] Address [address] [place] [address] Phone Care Team Providers Care Cage Maker Machine Name Role Phone Donald Broussard MD Primary Care Provider [phone] Allergies Active Allergy Reactions Criticality Noted Date Comments Banana Anaphylaxis 08/26/2023 Medications HYDROcodone-cindy taminophen (NORCO) 5-325 MG TabletIndicatio ns:Closed fracture of left elbow, initial encounter Take 1-2 Tablets by mouth every 4 hours as needed for Moderate or more severe pain. 12 Tablet 08/21/2023 Active Active Problems Problem Noted Date Diagnosed Date Closed fracture of capitellu m of distal humerus, left, initial encounter 08/26/2023 Family History Medical History Relation Name Comments High Cholesterol Father Hypertension Father Diabetes Mother Relation Name Status Comments Father Alive Mother Social History Tobacco Use Types Packs/Day Years Used Date Smoking Tobacco: Every Day Cigarettes 0.5 3.1 Started: 2021 Smokeless Tobacco: Never Tobacco Cessation:Ready to Q uit: Yes; Counseling Given: Yes Alcohol Use Standard Drinks/Week Comments Yes 2 (1 standard drink = 0.6 oz pur e alcohol) 1-3 DRINKS PER MONTH Sexually Active Control Partners Comments Yes Female Condom Comments No Sex and Gender Information Value Date Recorded Sex Assigned at Not on file Legal Sex Female 9:50 AM PRACTICE MANAGER Gender Identity Not on file Sexual Orientation Not on file Last Filed Vital Signs Vital Sign Reading Time Taken Comments Blood Pressure 114/64 06/20/2024 1:32 AM PRACTICE MANAGER Pulse 71 06/20/2024 1:32 AM PRACTICE MANAGER Temperature 37.1 C (98.7 F) 06/19/2024 10:05 PM PRACTICE MANAGER Respiratory Rate 16 06/19/2024 10:05 PM PRACTICE MANAGER Oxygen Saturation 100% 06/20/2024 1:32 AM PRACTICE MANAGER Inhaled Oxygen Concentration - - Weight 99.8 kg (220 lb) 06/19/2024 10:05 PM PRACTICE MANAGER Height 167.6 cm (5' 6 ) 06/19/2024 10:05 PM PRACTICE MANAGER Body Mass Index 35.51 06/19/2024 10:05 PM PRACTICE MANAGER Plan of Treatment Health Maintenance Due Date Last Done Comments Hepatitis C Virus (HCV) Screening 2001 Pneumococcal Immunization Combined (1 of 2 - PCV) 2020 Human Papillomavirus (HPV) Immunization (2 - 3-dose series) 07/03/2020 06/05/2020 Meningococcal B Immunization (2 of 2 - Bexsero SCDM 2-dose series) 12/04/2020 06/05/2020 Pap Smear 2022 Influenza Immunization (#1) 04/10/202405/11, 06/05/2020, 05/02/2013, Additional history exists SARS-COV-2 Immunization (2 - 2023- season) 2024 11/27/2020 Respiratory Syncytial Virus (RSV) Immunization (Adult) (1 - 1-dose 75+ series) 2076 Hepatitis B Immunization Completed 012, 05/02/2011, 02/24/2011, Additional history exists Meningococcal Immunization (ACWY) Aged Out 06/05/2020 No longer eligible based on patient's age to complete this topic DTaP/Tdap/Td Immunization Discontinued 2022, 08/26/2012, 05/02/2011, Additional history exists TdaP Immunization Completed 07/14/2023, 05/02/2011 Rotavirus Immunization Aged Out No lo nger eligible based on patient's age to complete this topic Medical Devices Implanted Type Area Metal Organ Pipe Maker Device Identifier Shelf Expiration Date Model / Serial / Lot 2.5 X 32mm Headless Compression Screw Implanted:Qty: 2 on 08/26/2023 by Nuno Stoll MD at [facility] Left: Elbow [id number] [id number] / [id number] / [id number] 3.0 X 30mm Headed Screw Implanted:Qty: 1 on 08/26/2023 by Nuno Stoll MD at [facility] Left: Elbow [id number] / [id number] / [id number] 3.0 X 32mm Headed Screw Implanted:Qty: 1 on 08/26/2023 by Nuno Stoll MD at [facility] Left: Elbow IRWIN [id number] / [id number] / [id number] Insurance [employer]ID [id number] Care Teams Cage Maker Machine Relationship Specialty Start Date End Date Donald Broussard MD [address] [place] [address] [place] [id number] PCP - General Family Medicine 06/11/23
--- OUTSIDE RECORDS SUMMARY | 2024-09-23 17:46 | XMS_ITS | Data Portability ---
Author Organization [facility] Address [address] [place] [address] Care Team Providers Care Assigner Name Role Phone GENIE HANDY Primary Care Provider [phone] Assessment No assessment recorded. Plan of Treatment Reminders Order Date Submit Date Provider Last Modified By Organization Details Last Modified Time Details Appointments None recorded. Lab None recorded. Referral None recorded. Procedures None recorded. Surgeries None recorded. Imaging None recorded. Medication Orders metronidazo le 500 mg tablet 2023 024 [facility] [place], [address], 4 09:40:09 Slynd 4 mg (28) tablet 2023 024 [facility], [address] [place] [address], [address], 09:44:09 Slynd 4 mg (28) tablet [address] [facility] [place], [address], 4 16:52:15 Patient TargetsNo targets recorded. Patient InstructionsNo instructions recorded. Reason for Referral None Reported. Results Created Date Observation Date Name Description Value Unit Range Abnormal Flag Note LastModifiedBy Organization Detail LastModifiedTime 12/08/19 24 12/08/2023 IMAGE GUIDE D PAP, REFLE X HPV IF ASCUS ONLY image guided Pap, reflex HPV ASCUS only SEE RESULT S BELOW abnormal CASE REPOR T: Cytol ogy Gynec ologi jairo Repor t Case: [id number] Autho spenser cameron Provi ranulfo: Lewis Clements Colle cted: 12/07 1708 [facility] Order ing Locat ion: [place] [facility] log[facility] Recei malissa: 12/08 0901 First Time n: Dyan Agustin Patho logis t: Lisset Torres MD Speci men: Marleny scott Pap - Image d, Cervi x STATE MENT OF ADEQU ACY: Satis facto ry for evalu ation Trans forma tion zone compo nent absen t ----- ----- ----- ----- ----- ----- ----- ----- ----- ----- ----- ----- ----- ----- ----- ----- ----- ---- FINAL DIAGN OSIS: Epith elial Cell Abnor malit y, Squam ous Cell: Low Grade Squam ous Intra epith elial Lesio n (LSIL ). Shift in braulio sugge stive of bacte rial vagin osis. Elect zack clark by Lisset Torres MD on 024 at 3:03 PM ----- ----- ----- ----- ----- ----- ----- ----- ----- ----- ----- ----- ----- ----- ----- ----- ----- ---- COMME NT: This speci men was revie wed by a Cytot echno logis t and/o r Patho logis t (as indic ated in this repor t) after evalu ation using the Thinp rep Imagi ng Syste m. CLINI JAIRO INFOR MATIO N: Menst rual Statu s: LMP (if appli cable ): Clini jairo Histo ry/Pr eviou s Pap: Type of Neopl jaimee (if appli cable ): Signi fican t Clini jairo Findi ngs: Other Histo ry: Hormo yuri (if appli cable ): MATTY JACKSON FOLLO W-UP: Follo w up as warra nted, based on curre nt guide lines and indiv idual patie nt consi derat ions. Not Available [facility] (Lab) [address], [place], [address], 12/14/2023 16:07:12 12/08/19 24 12/08/2023 TRICH OMONA S VAGIN SIL (RRNA ) trichomonas vaginalis ribosomal RNA (rrna) Negati ve negati ve Not Available [facility] (Lab) [address], [place], [address], 12/14/2023 16:07:12 12/08/19 24 12/08/2023 CT/GC (EVELINE) , THINP REP VIAL chlamydia trachomatis, PCR Negati ve negati ve Not Available [facility] (Lab) [address], [place], [address], 12/14/2023 16:07:13 12/08/19 24 12/08/2023 CT/GC (EVELINE) , THINP REP VIAL neisseria gonorrhoeae, PCR Negati ve negati ve Not Available [facility] (Lab) [address] [place], [address], 12/14/2023 16:07:13 Result Notes None recorded. Procedures Surgical History Date Name Laterality Status Provider Name and Address Organization Details Recorded Time 4 Date of Last Pap Smear completed Rachel Montano [facility] 03/07/2024 15:30:58 4 Orthopedic Surgery completed Alanna Hernandes [facility] 12/08/2023 16:35:54 Imaging Results None recorded. Procedure Notes None recorded. Medical Equipment None Reported. Allergies Allergen ID Allergen Name Allergen Category Reaction Reaction Severity Criticality Documentation Date Start Date Code Code System Note Provider Name and Address Organization Details Recorded Time banana extract food,medi cation anaphylax is moderate Not available 12/08/2023 [id number] RxNorm Alanna mon [place] [facility] 16:32:24 Medications Name Sig Start Date Stop Date Status Note LastModified by Organization Details LastModified Time id now covid19 2.0 diagnostic test TEST DIRECTED TODAY 12/07 completed Not Available Not Available Not Available prednisone 10 mg tablet TAKE 6 TABLETS BY MOUTH DAILY ON DAY 1, TAKE 4 TABS DAILY ON DAYS 2-4, TAKE 3 TABS DAILY ON DAYS 5-6, TAKE 2 TABS DAILY ON DAYS 7-8, AND TAKE 1 TAB DAILY ON DAYS 9-10 12/07 completed Not Available Not Available Not Available hydrocodone 5 mg-acetamin ophen 325 mg tablet TAKE 1 TO 2 TABLETS BY MOUTH EVERY 4 HOURS NEEDED FOR MODERATE OR MORE SEVERE PAIN. MAX OF 8 TABLETS PER DAY. 12/07 completed Not Available Not Available Not Available ondansetron HCl 4 mg tablet TAKE 1 TABLET BY MOUTH EVERY 8 HOURS NEEDED FOR NAUSEA FOR UP TO 3 DAYS-1ST LINE 12/07 completed Not Available Not Available Not Available sumatriptan 50 mg tablet TAKE 1 TABLET BY MOUTH ONCE NEEDED FOR MIGRAINE, MAY REPEAT AFTER 2 HOURS active Not Available Not Available No t Available metronidazo le 500 mg tablet TAKE 1 TABLET BY MOUTH EVERY 12 HOURS FOR 7 DAYS active Not Available Not Available No t Available triamcinolo ne acetonide 0.1 % topical cream APPLY CREAM EXTERNALL Y TWICE DAILY FOR 7 DAYS 12/07 completed Not Available Not Available Not Available ofloxacin 0.3 % ear drops INSTILL 5 DROPS INTO LEFT EAR TWICE A DAY FOR 10 DAYS 03/07 completed Not Available Not Available Not Available amoxicillin 875 mg tablet TAKE 1 TABLET BY MOUTH EVERY 12 HOURS 03/07 completed Not Available Not Available Not Available amitriptyli ne 10 mg tablet TAKE 1 TABLET BY MOUTH NIGHTLY active Not Available Not Available No t Available phenazopyri dine 100 mg tablet TAKE 1 TABLET BY MOUTH THREE TIMES DAILY FOR 3 DAYS active Not Available Not Available No t Available hydrocodone 7.5 mg-acetamin ophen 325 mg tablet TAKE 1 TABLET BY MOUTH EVERY 4 TO 6 HOURS NEEDED FOR PAIN (USE FOR POST OP PAIN) 12/07 completed Not Available Not Available Not Available triamcinolo ne acetonide 0.1 % topical ointment APPLY OINTMENT TOPICALLY TWICE DAILY NEEDED TO RASH 03/08 completed Not Available Not Available Not Available ibuprofen 600 mg tablet TAKE 1 TABLET BY MOUTH EVERY 8 HOURS NEEDED FOR MILD OR MORE SEVERE PAIN FOR UP TO 7 DAYS active Not Available Not Available No t Available escitalopra m 10 mg tablet TAKE 1 TABLET BY MOUTH ONCE DAILY active Not Available Not Available No t Available nitrofurant oin monohydrate /macrocryst als 100 mg capsule TAKE 1 CAPSULE BY MOUTH TWICE DAILY FOR 7 DAYS active Not Available Not Available No t Available Slynd 4 mg (28) tablet Take 1 tablet every day by oral route as directed. active Not Available Not Available No t Available Vitals Date Recorded Body height Body mass index (BMI) Body weight Systolic blood pressure Diastolic blood pressure Provider Name and Address Organization Details Last Updated DateTime 12/08/2023 167.64 cm 38.1 kg/m2 408432.8 g 139 mm[Hg] 84 mm[Hg] Alanna Hernandes [facility] 4 16:32:18 Date Recorded Body height Body mass index (BMI) Body weight Systolic blood pressure Diastolic blood pressure Provider Name and Address Organization Details Last Updated DateTime 03/08/2024 167.64 cm 38.9 kg/m2 895359.7 6 g 130 mm[Hg] 84 mm[Hg] Rachel Montano [facility] 4 09:31:20 Social History Question Answer Notes LastModified by Organizat ion Details LastModified Time Tobacco Smoking Status Former Smoker Alanna Hernandes [facility] 12/08/2023 16:35:27 Do You Have An Advance Directive? No Information not available 12/08/2023 What Is Your Level Of Alcohol Consumption? Occasional Information not available 12/08/2023 How Many Years Have You Consumed Alcohol? 1 Information not available 12/08/2023 Are You Blind Or Do You Have Difficulty Seeing? No Information not available 12/08/2023 What Is Your Level Of Caffeine Consumption? Moderate Information not available 12/08/2023 How Much Tobacco Do You Chew? None Information not available 12/08/2023 In The 14 Days Before Symptom Onset, Have You Had Close Contact With A Laboratory-confir med COVID-19 While That Case Was Ill? No Information not available 12/08/2023 In The 14 Days Before Symptom Onset, Have You Had Close Contact With A Person Who Is Under Investigation For COVID-19 While That Person Was Ill? No Information not available 12/08/2023 Have You Been To An Area Known To Be High Risk For COVID-19? No Information not available 12/08/2023 Are You Deaf Or Do You Have Serious Difficulty Hearing? No Information not available 12/08/2023 What Type Of Diet Are You Following? REGULAR Information not available 12/08/2023 What Is The Highest Grade Or Level Of School You Have Completed Or The Highest Degree You Have Received? 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 No Information not available 12/08/2023 Do You Use Protection During Sex? Usually Information not available 12/08/2023 Do You Use Your Seat Belt Or Car Seat Routinely? Yes Information not available 12/08/2023 Do You Have Smoke And Carbon Monoxide Detectors In Your Home? Yes Information not available 12/08/2023 At What Age Did You Start Smoking Tobacco? 22 Information not available 12/08/2023 How Much Tobacco Do You Smoke? No Information not available 12/08/2023 Do You Feel Stressed (tense, Restless, Nervous, Or Anxious, Or Unable To Sleep At Night)? [id number] Information not available 12/08/2023 Do You Use Any Illicit Or Recreational Drugs? No Information not available 12/08/2023 Do You Use Sunscreen Routinely? No Information not available 12/08/2023 How Many Years Have You Smoked Tobacco? 1 Information not available 12/08/2023 Have You Used IV Drugs? No Information not available 12/08/2023 Sex: Unknown Functional Status Question Answer Note LastModified by Organizat ion Details LastModified Time Do you have difficulty walking or climbing stairs? No [email or web address] Information not available 03/07/2024 Are you able to walk? YESWOREST Information not available 12/08/2023 Are you able to care for yourself? Yes [email or web address] Information not available 03/07/2024 Do you have difficulty dressing or bathing? No [email or web address] Information not available 03/07/2024 What is your exercise level? Occasional Information not available 12/08/2023 Mental Status None recorded. Family History Relationship Description Onset Age of this Age Resolved Age Notes LastModified by Organization Details LastModified Time Maternal Grandmother Malignant tumor of breast Not available 2023 16:35:05 Father Hypertensive disorder Not available 2023 16:35:16 Medical History Condition Response Allergies (Food, seasonal, environmental ) Y Headaches Y Gynecological History Statement/Question Response Abnormal Pap N Flow Heavy Date of LMP 02/10/2024 On BCP's at Conception? N N Was last menstrual period normal N STIs/STDs N HPV Vaccine N Duration of Flow (days) 10 Current Control Method Condoms Are cycles usually normal N Sexually Active? Y Multiple Methods Menses Monthly N Age of first menstrual cycle 11 Date of Last Pap Smear 12/08/2023 Sexual Problems? N Desired Control Method Condoms LMP Approximate N Obstetrics History GPAL:G 0 P 0 0 0 0 Past Encounters Encounter ID Performer Location Encounter Start Date Encounter Closed Date Diagnosis/Indication Diagnosis SNOMED-CT Code Diagnosis ICD10 Code Diagnosis Note [id number] Va Lenz , [facility] [address] [address] 12/08/2023 16:17:29 12/09/2023 05:26:27 Gynecologic examination 77034964 Z01.419 Take Calcium with Vitamin D 1200mg daily if not receiving in daily diet. It is strongly advised to have an annual flu shot and up can obtain at most pharmacies . If you have not had a TDap shot in the last 10 years you should obtain one as well. Discussed with patient & provided with informatio n regarding Gardisil vaccine to prevent the 4 strains for HPV that cause cervical cancer if under age 26. Encourage safe sexual practices, to use condoms and limit partners if not already in a monogamous relationsh ip. Do monthly self breast exams. Have mammogram yearly or every other year depending on family history. BRCA testing is now available for patients with strong genetic history of female cancer. If interested contact the office. Engage in daily exercise of low impact aerobic exercise 45-60 minutes 4-5 times weekly. Avoid tobacco and illicit drugs as well as using moderation with alcohol intake less than 1-2 8 oz beverages daily. This lifestyle behavior pattern will lead to less health conditions and longer life span. If BMI greater than 25 weight watchers or dietary consult advised. Patient received above instructio ns, and questions have been answered. If you have any questions please call or respond to this email. Patient was made aware of the patient portal and may obtain a paper copy of today's plan if desired. Pap sentSTD Screen sentGeneti c Screen discussedC olon Screen naDexa Screen naRoutine Labs/US Consider if unable to manage menses with pop Secondary dysmenorrhea 12753440 N94.5 Discussed all control options in great detail. Pt would like to start POP. She is aware of the risks and benefits. She has contraindi cations to use of OCP or other estrogen containing hormonal therapy. Pt will start her pills on the first thursday following the start of her period. She is aware it is not effective for control the first month. She is also aware of the importance of taking at the same time every day. Encouraged use of condoms as the pill does not protect against STD's. Will return in 3 months for med check. Consent was read and signed. Pt verbalized understand ing. Today we agreed to start with POP SLYND and then a pre-medica tion regimen to help catch up with dysmenorrh ea instead of letting it get to it's worst; our goal is to significan tly lighten, shorten, regulate cycles which will decrease the dysmenorrh ea with SLYND. We agreed to return in 3mos for medication check. Pre-medica tion regimen x 2-3d prior to onset of menses:Ibu profen 600-800mg TID with food x 2-3d coupled with Tylenol q8hrs x 2-3d. [id number] JOEL Santa [place] [address] [address] 03/08/2024 09:26:10 03/08/2024 09:56:47 Vaginitis 89704334 N76.0 rx sent for BVr/b/a reviewed, vulvar care guidelines discussed Secondary dysmenorrhea 46756098 N94.5 Patient is here today for a medicaton check of control. She voices goals of therapy have been met with use of this therapy. She denies neg side effects. She is eating, drinking, sleeping well; moods are stable & periods are well regulated. Wishes to continue this method of BC. Appropriat e to continue this medication .refills sentRTC for WWE/repeat pap 12/07/2024 or sooner if needed Time spent in visit is a total of 20mins with at least 50% of visit consisting of counseling and review of plan of care. Health Concerns Section Related Observation LastModified by Organization Detai ls LastModified Time None Recorded Concern Status LastModified by Organization Details LastModified Time None Recorded Advance Directives Directive N: Payers Encounter Date Sequence Insurance Name Policy Number Policy Dutta Covered Member ID Dutta Member ID Guarantor Name 12/08/2023 1 [facility] (MEDICAID HMO) [id number] Mary Pereyra [id number] Mary Pereyra 03/08/2024 1 [facility] (MEDICAID HMO) [id number] Mary Pereyra [id number] Mary Pereyra Notes Date Note Type Note Provider Name and Address Organization Details Recorded Time 12/08/2023 text/html Annual GYNReport ed bypatient.Menstrua l cycle:Severe dysmenorrhea;Bleed ing lasts more than 7 days Urinary symptoms:No hematuria; No incontinence Vulva:No genital lesion Vagina:Normal vaginal discharge Breast:No breast pain; No breast lump; No nipple discharge Current Contraception:Sati sfied with current contraception; Condoms Sexual complaints:No sexual complaints; No pain during intercourse; Normal libido Menopausal Symptoms:No menopausal symptoms; Normal vaginal lubrication Psychological symptoms:No depression; No anxiety; No PMDD Preventive measures:Encourage self breast examination; Encourage regular exercise; Encourage no tobacco use; Encourage regular mammograms starting age 40; Followed with yearly pap smears Menses:Every other monthbleeds x 10 daysPain VERY badHurts so badly she will vomitKnows her period is coming because it starts with low back ache. Age 18yo control pills--then lost insurance JOEL Chadwick- [address], [place], [address], [facility] 12/08/2023 17:13:31 03/08/2024 text/html 23yopresents for med checkstarted slynd at LOVperiods much better! 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 03/08/2024 09:52:12 OBGyn Episode No OBEpisode recorded.
--- OUTSIDE RECORDS SUMMARY | 2024-09-23 17:46 | XMS_ITS | Clinical Summary ---
Author Organization [facility] Address [address] [place] [address] Phone Care Team Providers Care Technical Fellow Name Role Phone Donald Broussard MD Primary Care Provider [phone] Allergies Active Allergy Reactions Criticality Noted Date Comments Banana Unknown 04/12/2024 Medications drospirenone, contraceptive, (Slynd) 4 mg (28) Tablet Take by mouth. Act merline rimegepant (Nurtec ODT) 75 mg Tablet, Rapid Dissolve Take by mouth. Active OTHER Provider please include Medication name, dose, route and frequency Active Active Problems Problem Noted Date Diagnosed Date Acute acalculous cholecystitis 04/12/2024 Resolved Problems Problem Noted Date Diagnosed Date Resolved Date Symptomatic cholelithiasis 04/14/2024 0 04/14/2024 Encounters Date Type Department Care Team Description 09/13/2024 External Device Data [facility] ABSTRACTION Provider, Abstract 09/01/2024 External Device Data [facility] Provider, Abstract 08/31/2024 External Device Data [facility] Provider, Abstract 08/30/2024 External Device Data [facility] Provider, Abstract 08/23/2024 External Device Data [facility] Provider, Abstract 07/12/2024 External Device Data [facility] ABSTRACTION Provider, Abstract from Last 3 Months Social History Tobacco Use Types Packs/Day Years Used Date Smoking Tobacco: Former Cigarettes Tobacco Cessation:Counseling Given: Not Answered Alcohol Use Standard Drinks/Week Comments Yes 3 (1 standard drink = 0.6 oz pur e alcohol) Feeling Safe Answer Date Recorded Are you in a relationship wi th someone who hurts you emotionally and/or physically? No 04/12/2024 Food Insecurity Answer Date Recorded Social/Environmental Concerns No concerns Transportation Needs Answer Date Record ed Social/Environmental Concerns No concerns Housing Stability Answer Date Recorded Social/Environmental Concerns No concerns Utility Needs Answer Date Recorded Social/Environmental Concerns No concerns Comments No Sex and Gender Information Value Date Recorded Sex Assigned at Not on file Legal Sex Female 5:02 AM CDT Gender Identity Not on file Sexual Orientation Not on file Last Filed Vital Signs Vital Sign Reading Time Taken Comments Blood Pressure 132/84 05/26/2024 8:37 AM CDT Pulse 108 05/26/2024 8:37 AM CDT Temperature 37.2 C (98.9 F) 04/14/2024 8:38 AM CDT Respiratory Rate 16 04/14/2024 8:38 AM CDT Oxygen Saturation 99% 05/26/2024 8:37 AM CDT Inhaled Oxygen Concentration - - Weight 104.7 kg (230 lb 13.2 oz) 05/26/2024 8:37 AM CDT Height 167.6 cm (5' 6 ) 05/26/2024 8:37 AM CDT Body Mass Index 37.26 05/26/2024 8:37 AM CDT Plan of Treatment Health Maintenance Due Date Last Done Comments CHLAMYDIA SCREENING (ANNUAL) 11-24 YEARS 2012 HPV VACCINES (2 - 3-dose series) 07/03/2020 06/05/2020 INFLUENZA VACCINE (#1) 2024 , 06/05/2020, 05/02/2013, Additional history exists CERVICAL CANCER SCREENING 12/07/2026 12/08/2023 DTAP/TDAP/TD VACCINES (7 - Td or Tdap) 07/14/2033 07/14/2023, 05/02/2011, 02/24/2011, Additional history exists HEPATITIS B VACCINES Completed 09/30/2011, 05/02/2011, 02/24/2011, Additional history exists PNEUMOCOCCAL VACCINE 0-64 YEARS Aged Out No longer eligible based on patient's age to complete this topic Medical Devices Implanted Type Area Fringe Maker Device Identifier Shelf Expiration Date Model / Serial / Lot Endo Clip Ii 10mm [id number] - [id number] Implanted:Qt y: 1 on 04/13/2024 by Sacha Peterson DO at [facility] Clip N/A: Abdomen [employer] - COVIDIEN [id number] 11/07/2028 [id number] / / [id number] Y Hemostat Surg Snow 2x4in 2081 - [id number] Implanted:Qt y: 1 on 04/13/2024 by Sacha Peterson DO at [facility] Hemostatic N/A: Abdomen J[employer]J- [employer] [id number] 11/07/2025 2082 / / [id number] Hemostat Surg Snow 2x4in 2081 - [id number] Implanted:Qt y: 1 on 04/13/2024 by Sacha Peterson DO at [facility] Hemostatic N/A: Abdomen J[employer]- [employer] [id number] 12/07/2025 2082 / / [id number] Screw- 024 Implanted: (Quantity not on file) Screw Elbow Insurance [place] RX [facility] [employer] Advance Directives For more information, please contact: [phone] * Full Code (Latest Code Status on File) Date Activated Date Inactivated Comments 04/13/2024 12:19 PM 04/14/2024 6:43 PM * Full Code Date Activated Date Inactivated Comments 04/12/2024 10:40 AM 04/13/2024 12:19 PM Care Teams Technical Fellow Relationship Specialty Start Date End Date Donald Broussard MD [address] [facility] [address] [address] PCP - General Family Practice 04/12/24
--- OUTSIDE RECORDS SUMMARY | 2024-09-23 17:46 | XMS_ITS | Referral Summary ---
Author Organization [facility] Address [address] [place] [address] Care Team Providers Care Fur Clipper Name Role Phone Donald Broussard MD Primary Care Provider [phone] Encounters Date Type Department Care Team Description 07/23/2024 10:51 PM DIRECTOR PATIENT FINANCIAL SERVICES - 07/24/2024 1:29 AM [facility] Emergency [facility] Emergency Department [address] [place] [address] Miguel Godoy MD Abdominal pain (Primary Dx); Cyst of right ovary; Bilious vomiting with nausea Discharge Disposition: Discharge to home or self care 06/27/2024 Telephone [facility] [address] [place] [phone] Ann Cao MA 06/24/2024 10:13 PM DIRECTOR PATIENT FINANCIAL SERVICES - 06/24/2024 11:28 PM [facility] Emergency [facility] Emergency Department [address] [place] [address] Donald Grove MD Elbow pain, chronic, left (Primary Dx); 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) Discharge Disposition: Discharge to home or self care 06/23/2024 Telephone [facility] [place] [address] [place] [address] Donald Broussard MD 1st no show letter sent 06/23/24 from Last 3 Months Allergies Active Allergy Reactions Criticality Noted Date [...] 11/02/2023 Psychophysiological insomnia 11/02/2023 Migraine headache 11/01/2014 Immunizations Name Administration Dates Next Due DTaP [...] Td, adsorbed 08/26/2012 Tdap 07/14/2023,05/02/2011 Varicella 02/24/2011 Social History Tobacco Use Types Packs/Day Years [...] on file Legal Sex Female 11:20 AM DIRECTOR PATIENT FINANCIAL SERVICES Gender Identity Female 12/23/2022 9:46 PM CDT Sexual Orientation Straight 12/23/2022 9: 46 PM CDT Last Filed Vital Signs Vital Sign Reading Time Taken Comments Blood Pressure 140/80 07/24/2024 1:15 AM DIRECTOR PATIENT FINANCIAL SERVICES Pulse 88 07/24/2024 1:15 AM DIRECTOR PATIENT FINANCIAL SERVICES Temperature 36.8 C (98.2 F) 07/23/2024 10:48 PM DIRECTOR PATIENT FINANCIAL SERVICES Respiratory Rate 18 07/23/2024 10:48 PM DIRECTOR PATIENT FINANCIAL SERVICES Oxygen Saturation 97% 07/24/2024 1:15 AM DIRECTOR PATIENT FINANCIAL SERVICES Inhaled Oxygen Concentration - - Weight 99.8 kg (220 lb) 07/23/2024 10:48 PM DIRECTOR PATIENT FINANCIAL SERVICES Height 167.6 cm (5' 6 ) 07/23/2024 10:48 PM DIRECTOR PATIENT FINANCIAL SERVICES Body Mass Index 35.51 07/23/2024 10:48 PM DIRECTOR PATIENT FINANCIAL SERVICES Plan of Treatment Not on file Procedures Procedure Name Priority Date/Time Associated Diagnosis Comments CT ABDOMEN PELVIS W CONTRAST ED 07/24/2024 12:43 AM DIRECTOR PATIENT FINANCIAL SERVICES URINALYSIS, MICROSCOPIC ONLY STAT 07/23/2024 11:54 PM DIRECTOR PATIENT FINANCIAL SERVICES HCG, URINE, QUALITATIVE STAT 07/23/2024 11:54 PM DIRECTOR PATIENT FINANCIAL SERVICES URINALYSIS AND REFLEX TO MICROSCOPIC AND CULTURE STAT 07/23/2024 11:54 PM DIRECTOR PATIENT FINANCIAL SERVICES CREATINE KINASE (CK), TOTAL STAT 07/23/2024 11:12 PM DIRECTOR PATIENT FINANCIAL SERVICES EGFR STAT 07/23/2024 11:11 PM DIRECTOR PATIENT FINANCIAL SERVICES DIFFERENTIAL AUTO STAT 07/23/2024 11: 11 PM DIRECTOR PATIENT FINANCIAL SERVICES LACTATE Routine 07/23/2024 11:11 PM DIRECTOR PATIENT FINANCIAL SERVICES LIPASE STAT 07/23/2024 11:11 PM DIRECTOR PATIENT FINANCIAL SERVICES MAGNESIUM Routine 07/23/2024 11:11 PM DIRECTOR PATIENT FINANCIAL SERVICES COMPREHENSIVE METABOLIC PANEL STAT 07/23/2024 11:11 PM DIRECTOR PATIENT FINANCIAL SERVICES CBC WITH AUTO DIFFERENTIAL STAT 07/23/2024 11:11 PM DIRECTOR PATIENT FINANCIAL SERVICES INFLUENZA A/B, RSV, AND COVID-19 PCR Routine 07/23/2024 11:11 PM DIRECTOR PATIENT FINANCIAL SERVICES XR ELBOW LEFT 2 OR MORE VIEWS ED 06/24/2024 11:00 PM DIRECTOR PATIENT FINANCIAL SERVICES from Last 3 Months Results * CT Abdomen Pelvis W Contrast (07/24/2024 12:43 AM DIRECTOR PATIENT FINANCIAL SERVICES) Anatomical Region Laterality Modality Body N/A Computed Tomogra phy 07/24/2024 12:5 6 AM DIRECTOR PATIENT FINANCIAL SERVICES Narrative 07/24/2024 1:00 AM DIRECTOR PATIENT FINANCIAL SERVICES EXAM DESCRIPTION: CT ABDOMEN PELVIS W CONTRAST [...] Agustín Pond M.D. KT: SHAN Report ID: [id number] Reading Location: [id number] Procedure Note Agustín Pond MD - 07/24/2024 EXAM DESCRIPTION: CT ABDOMEN [...] Agustín Pond M.D. KT: SHAN Report ID: [id number] Reading Location: [place] [address] us Miguel Godoy MD IM CT PROCEDURES Final Resul t * (ABNORMAL) Urinalysis reflex to microscopic and culture Urine, bladder (07/23/2024 11:54 PM DIRECTOR PATIENT FINANCIAL SERVICES) Color, ur Yellow Yellow Clarity, ur Clear Clear [facility] ([place]) Specific gravity, ur 1.036(H) 1.003 - 1.030 [facility] ([place]) pH, urine 6.5 [facility] ([place]) Comment: Interpretive Data U rine pH is affected by diet, medications, systemic acid-base disturbances, and renal tubular function. pH may affect urinary stone formation. For example, urine pH below 6.0 may help reduce the tendency for calcium phosphate stones and pH greater than 6.0 may reduce the tendency for uric acid stone formation. Source: [facility] [employer] Current Interpretive Data was last revised on [...] ([place]) Urine, bladder 07/23/2024 11 :54 PM DIRECTOR PATIENT FINANCIAL SERVICES 07/23/2024 11:56 PM DIRECTOR PATIENT FINANCIAL SERVICES us Miguel Godoy MD LAB MICROBIOLOGY - GENERAL OR DERABLES Final Result Performing Organization Address City/[facility]/ZIP Co de Phone Number [facility] ([place]) [address] [place] [address] * hCG, urine, qualitative (07/23/2024 11:54 PM DIRECTOR PATIENT FINANCIAL SERVICES) HCG, ur Negative Negative Urine 07/23/2024 11:5 4 PM DIRECTOR PATIENT FINANCIAL SERVICES 07/23/2024 11:56 PM DIRECTOR PATIENT FINANCIAL SERVICES us Miguel Godoy MD LAB URINE ORDERABLES Final Re sult [facility] ([place]) [address] [place] [address] * (ABNORMAL) Urinalysis, microscopic only (07/23/2024 11:54 PM DIRECTOR PATIENT FINANCIAL SERVICES) [facility] WBC, ur 0-5 0 - 5 /HPF RBC, ur 21-50(A) 0 - 2 /HPF [facility] ([place]) Epithelial cells, squamous, ur 1-5 0 - 5 /HPF [facility] ([place]) Bacteria, ur Trace(A) [facility] ([place]) Mucous, ur Present(A) [facility] A ([place]) Culture Reflex Comment Reflex conditions for urine culture (WBC >10) not met. [facility] ([place]) Urine, bladder 07/23/2024 11 :54 PM DIRECTOR PATIENT FINANCIAL SERVICES 07/23/2024 11:56 PM DIRECTOR PATIENT FINANCIAL SERVICES Miguel Godoy MD LAB URINE ORDERABLES Final Re sult Performing Organization Address [facility] Co de Phone Number [facility] ([place]) [address] [place] [address] * Creatine kinase (CK), total (07/23/2024 11:12 PM DIRECTOR PATIENT FINANCIAL SERVICES) [facility] CK 73 30 - 200 Units/L Blood 07/23/2024 11:1 2 PM DIRECTOR PATIENT FINANCIAL SERVICES 07/23/2024 11:24 PM DIRECTOR PATIENT FINANCIAL SERVICES Miguel Godoy MD LAB BLOOD ORDERABLES Final Re sult Performing Organization Address [facility]/ZIP Co de Phone Number [facility] ([place]) [address] [place] [address] * Influenza A/B, RSV, and COVID-19 PCR Nasopharyngeal (07/23/2024 11:11 PM DIRECTOR PATIENT FINANCIAL SERVICES) [facility] COVID-19 RNA Negative Negative Influenza A RNA Negative Negative [facility] ([place]) Influenza B RNA Negative Negative [facility] ([place]) RSV RNA Negative Negative [facility] ([place]) Comment: Interpretive data: Testing performed by [facility]. This test is performed using the Cepheid Xpert Xpress CoV-2/Flu/RSV plus assay. This is a multiplex, real- time reverse transcriptase PCR assay intended for the qualitative detection of nucleic acid from SARS-CoV-2, influenza A, influenza B, and respiratory syncytial virus. This assay has been cleared by the [place] Food and Drug administration. The performance characteristics have been verified by the [facility]. Results must be considered in the clinical context, and a negative result does not rule out infection. Interpretive Data last revised 2023 Nasopharyngeal 07/23/2024 11 :11 PM DIRECTOR PATIENT FINANCIAL SERVICES 07/23/2024 11:24 PM DIRECTOR PATIENT FINANCIAL SERVICES Narrative [facility]) - 07/24/2024 12:04 AM DIRECTOR PATIENT FINANCIAL SERVICES Is the Patient experiencing symptoms consistent with COVID?->Yes Miguel Godoy MD LAB MICROBIOLOGY - GENERAL OR DERABLES Final Result Performing Organization Address [facility] Co de Phone Number [facility] [address] [place] [address] * Lactate (07/23/2024 11:11 PM DIRECTOR PATIENT FINANCIAL SERVICES) Lactate 0.7 0.7 - 2.0 mmol/L Blood 07/23/2024 11:1 1 PM DIRECTOR PATIENT FINANCIAL SERVICES 07/23/2024 11:28 PM DIRECTOR PATIENT FINANCIAL SERVICES Miguel Godoy MD LAB BLOOD ORDERABLES Final Re sult Performing Organization Address [facility] Co de Phone Number [facility] ([place] [address] [place] [address] * eGFR (07/23/2024 11:11 PM DIRECTOR PATIENT FINANCIAL SERVICES) eGFR >90 >=60 mL/min/1. 73 m2 Comment: [...] reviewed 2021. Blood 07/23/2024 11:1 1 PM DIRECTOR PATIENT FINANCIAL SERVICES 07/23/2024 11:24 PM DIRECTOR PATIENT FINANCIAL SERVICES us Miguel Godoy MD LAB BLOOD ORDERABLES Final Re sult [facility] ([place]) [address] [place] [address] * Differential, auto (07/23/2024 11:11 PM DIRECTOR PATIENT FINANCIAL SERVICES) Neutrophil abs 3.5 1.5 - 6.5 K/cumm [...] on 2017. Blood 07/23/2024 11:1 1 PM DIRECTOR PATIENT FINANCIAL SERVICES 07/23/2024 11:24 PM DIRECTOR PATIENT FINANCIAL SERVICES us Miguel Godoy MD LAB BLOOD ORDERABLES Final Re sult [facility] ([place]) [address] [facility] [place] [address] * CBC with auto differential (07/23/2024 11:11 PM DIRECTOR PATIENT FINANCIAL SERVICES) WBC 5.3 3.8 - 9.9 K/cumm Hgb [...] ([place]) MCH 30.4 27.1 - 33.3 pg [facility] ([place]) MCHC 33.9 32.3 - 35.7 g/dL [facility] ([place]) RDW CV 11.9 11.1 - 14.9 % [facility] ([place]) RDW SD 39.2 35.7 - 48.1 fL [facility] ([place]) NRBC abs 0.00 0.00 - 0.01 K/cumm [facility] ([place]) Blood 07/23/2024 11:1 1 PM DIRECTOR PATIENT FINANCIAL SERVICES 07/23/2024 11:24 PM DIRECTOR PATIENT FINANCIAL SERVICES Miguel Godoy MD LAB BLOOD ORDERABLES Final Re sult [facility] ([place]) [address] [facility] [place] [address] * Magnesium (07/23/2024 11:11 PM DIRECTOR PATIENT FINANCIAL SERVICES) Magnesium 1.8 1.4 - 2.5 mg/dL Blood 07/23/2024 11:1 1 PM DIRECTOR PATIENT FINANCIAL SERVICES 07/23/2024 11:24 PM DIRECTOR PATIENT FINANCIAL SERVICES Miguel Godoy MD LAB BLOOD ORDERABLES Final Re sult Performing Organization Address City/[facility]/ZIP Co de Phone Number [facility] ([place]) [address] [facility] [place] [address] * Lipase (07/23/2024 11:11 PM DIRECTOR PATIENT FINANCIAL SERVICES) Lipase 17 10 - 99 Units/L Blood 07/23/2024 11:1 1 PM DIRECTOR PATIENT FINANCIAL SERVICES 07/23/2024 11:24 PM DIRECTOR PATIENT FINANCIAL SERVICES Miguel Godoy MD LAB BLOOD ORDERABLES Final Re sult [facility] ([place]) [address] [place] [address] * (ABNORMAL) Comprehensive metabolic panel (07/23/2024 11:11 PM DIRECTOR PATIENT FINANCIAL SERVICES) Sodium 134(L) 135 - 145 mmol/L Potassium, [...] [facility] ([place]) Blood 07/23/2024 11:1 1 PM DIRECTOR PATIENT FINANCIAL SERVICES 07/23/2024 11:24 PM DIRECTOR PATIENT FINANCIAL SERVICES us Miguel Godoy MD LAB BLOOD ORDERABLES Final Re sult [facility] ([place]) [address] [facility] [place] [address] * XR Elbow Left 2 or More Views (06/24/2024 11:00 PM DIRECTOR PATIENT FINANCIAL SERVICES) Anatomical Region Laterality Modality Upper Extremities, Elbow Left Compute d Radiography 06/24/2024 11:2 9 PM DIRECTOR PATIENT FINANCIAL SERVICES Narrative 06/24/2024 11:30 PM DIRECTOR PATIENT FINANCIAL SERVICES EXAM DESCRIPTION: XR ELBOW LEFT 2 VIEWS [...] Agustín Pond M.D. KT: SHAN Report ID: [id number] Reading Location: [id number] Procedure Note Agustín Pond MD - 06/24/2024 [...] Agustín Pond M.D. KT: SHAN Report ID: [id number] Reading Location: [place] [address] Donald Grove MD IMG XR PROCEDURES Final Res ult from Last 3 Months Insurance [facility] Care Teams Fur Clipper Relationship Specialty Start Date End Date Donald Broussard MD PCP - General Family Medicine 12/25/22
[2024-09-23 17:55] VITALS: BP 147/68; PULSE 95; RESP 16; TEMP 36.7; O2SAT 100
--- OUTSIDE RECORDS SUMMARY | 2024-09-23 22:14 | XMS_ITS | Referral Summary ---
Author Organization [facility] Address [address] [place] [address] Care Team Providers Care Door Framer Name Role Phone Donald Broussard MD Primary Care Provider [phone] Encounters Date Type Department Care Team Description 07/23/2024 10:51 PM JUNIOR MANUFACTURING ENGINEER - 07/24/2024 1:29 AM [facility] Emergency [facility] Emergency Department [address] [place] [address] Miguel Godoy MD Abdominal pain (Primary Dx); Cyst of right ovary; Bilious vomiting with nausea Discharge Disposition: Discharge to home or self care 06/27/2024 Telephone [facility] Orthopedics and Sports Medicine [address] [place] [id number] Ann Cao MA 06/24/2024 10:13 PM JUNIOR MANUFACTURING ENGINEER - 06/24/2024 11:28 PM [facility] Emergency [facility] Emergency Department [address] [place] [address] Donald Grove MD Elbow pain, chronic, left (Primary Dx); 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8 C (98.2 F) 07/23/2024 10:48 PM JUNIOR MANUFACTURING ENGINEER Respiratory Rate 18 07/23/2024 10:48 PM JUNIOR MANUFACTURING ENGINEER Oxygen Saturation 97% 07/24/2024 1:15 AM JUNIOR MANUFACTURING ENGINEER Inhaled Oxygen Concentration - - Weight 99.8 kg (220 lb) 07/23/2024 10:48 PM JUNIOR MANUFACTURING ENGINEER Height 167.6 cm (5' 6 ) 07/23/2024 10:48 PM JUNIOR MANUFACTURING ENGINEER Body Mass Index 35.51 07/23/2024 10:48 PM JUNIOR MANUFACTURING ENGINEER Plan of Treatment Not on file Procedures Procedure Name Priority Date/Time Associated Diagnosis Comments CT ABDOMEN PELVIS W CONTRAST ED 07/24/2024 12:43 AM JUNIOR MANUFACTURING ENGINEER URINALYSIS, MICROSCOPIC ONLY STAT 07/23/2024 11:54 PM JUNIOR MANUFACTURING ENGINEER HCG, URINE, QUALITATIVE STAT 07/23/2024 11:54 PM JUNIOR MANUFACTURING ENGINEER URINALYSIS AND REFLEX TO MICROSCOPIC AND CULTURE STAT 07/23/2024 11:54 PM JUNIOR MANUFACTURING ENGINEER CREATINE KINASE (CK), TOTAL STAT 07/23/2024 11:12 PM JUNIOR MANUFACTURING ENGINEER EGFR STAT 07/23/2024 11:11 PM JUNIOR MANUFACTURING ENGINEER DIFFERENTIAL AUTO STAT 07/23/2024 11: 11 PM JUNIOR MANUFACTURING ENGINEER LACTATE Routine 07/23/2024 11:11 PM JUNIOR MANUFACTURING ENGINEER LIPASE STAT 07/23/2024 11:11 PM JUNIOR MANUFACTURING ENGINEER MAGNESIUM Routine 07/23/2024 11:11 PM JUNIOR MANUFACTURING ENGINEER COMPREHENSIVE METABOLIC PANEL STAT 07/23/2024 11:11 PM JUNIOR MANUFACTURING ENGINEER CBC WITH AUTO DIFFERENTIAL STAT 07/23/2024 11:11 PM JUNIOR MANUFACTURING ENGINEER INFLUENZA A/B, RSV, AND COVID-19 PCR Routine 07/23/2024 11:11 PM JUNIOR MANUFACTURING ENGINEER XR ELBOW LEFT 2 OR MORE VIEWS ED 06/24/2024 11:00 PM JUNIOR MANUFACTURING ENGINEER from Last 3 Months Results * CT Abdomen Pelvis W Contrast (07/24/2024 12:43 AM JUNIOR MANUFACTURING ENGINEER) Anatomical Region Laterality Modality Body N/A Computed Tomogra phy 07/24/2024 12:5 6 AM JUNIOR MANUFACTURING ENGINEER Narrative 07/24/2024 1:00 AM JUNIOR MANUFACTURING ENGINEER EXAM DESCRIPTION: CT ABDOMEN PELVIS W CONTRAST [...] Agustín Pond M.D. KT: SHAN Report ID: [id number] Reading Location: [id number] Procedure Note Agustín Pond MD - 07/24/2024 [...] Agustín Pond M.D. KT: SHAN Report ID: [id number] Reading Location: [place] [address] us Miguel Godoy MD IM CT PROCEDURES Final Resul t * (ABNORMAL) Urinalysis reflex to microscopic and culture Urine, bladder (07/23/2024 11:54 PM JUNIOR MANUFACTURING ENGINEER) Color, ur Yellow Yellow Clarity, ur Clear [...] tendency for uric acid stone formation. Source: [facility] Current Interpretive Data was last revised on [...] ([place]) Urine, bladder 07/23/2024 11 :54 PM JUNIOR MANUFACTURING ENGINEER 07/23/2024 11:56 PM JUNIOR MANUFACTURING ENGINEER us Miguel Godoy MD LAB MICROBIOLOGY - GENERAL OR DERABLES Final Result Performing Organization Address City/[facility]/ZIP Co de Phone Number [facility] ([place]) [address] [place] [address] * hCG, urine, qualitative (07/23/2024 11:54 PM JUNIOR MANUFACTURING ENGINEER) HCG, ur Negative Negative Urine 07/23/2024 11:5 4 PM JUNIOR MANUFACTURING ENGINEER 07/23/2024 11:56 PM JUNIOR MANUFACTURING ENGINEER us Miguel Godoy MD LAB URINE ORDERABLES Final Re sult [facility] ([place]) [address] [facility] [place] [address] * (ABNORMAL) Urinalysis, microscopic only (07/23/2024 11:54 PM JUNIOR MANUFACTURING ENGINEER) [facility] WBC, ur 0-5 0 - 5 /HPF RBC, ur 21-50(A) 0 - 2 /HPF [facility] ([place] Epithelial cells, squamous, ur 1-5 0 - 5 /HPF [facility] ([place]) Bacteria, ur Trace(A) [facility] ([place]) Mucous, ur Present(A) [facility] A ([place]) Culture Reflex Comment Reflex conditions for urine culture (WBC >10) not met. [facility] ([place]) Urine, bladder 07/23/2024 11 :54 PM JUNIOR MANUFACTURING ENGINEER 07/23/2024 11:56 PM JUNIOR MANUFACTURING ENGINEER Miguel Godoy MD LAB URINE ORDERABLES Final Re sult Performing Organization Address [facility] Co de Phone Number [facility] ([place]) [address] [place] [address] * Creatine kinase (CK), total (07/23/2024 11:12 PM JUNIOR MANUFACTURING ENGINEER) [facility] CK 73 30 - 200 Units/L Blood 07/23/2024 11:1 2 PM JUNIOR MANUFACTURING ENGINEER 07/23/2024 11:24 PM JUNIOR MANUFACTURING ENGINEER Miguel Godoy MD LAB BLOOD ORDERABLES Final Re sult Performing Organization Address [facility]/ZIP Co de Phone Number [facility] ([place] [address] [place] [address] * Influenza A/B, RSV, and COVID-19 PCR Nasopharyngeal (07/23/2024 11:11 PM JUNIOR MANUFACTURING ENGINEER) [facility] COVID-19 RNA Negative Negative Influenza A RNA Negative Negative [facility] ([place] Influenza B RNA Negative Negative [facility] RSV RNA Negative Negative [facility] ([place]) Comment: Interpretive data: Testing performed by [facility]. This test is performed [...] performance characteristics have been verified by the [facility]. Results must be considered in the clinical context, and a negative result does not rule out infection. Interpretive Data last revised 2023 Nasopharyngeal 07/23/2024 11 :11 PM JUNIOR MANUFACTURING ENGINEER 07/23/2024 11:24 PM JUNIOR MANUFACTURING ENGINEER Narrative [facility] ([place]) - 07/24/2024 12:04 AM JUNIOR MANUFACTURING ENGINEER Is the Patient experiencing symptoms consistent with COVID?->Yes Miguel Godoy MD LAB MICROBIOLOGY - GENERAL OR DERABLES Final Result Performing Organization Address [facility] Co de Phone Number [facility] [address] [facility] [place] [address] * Lactate (07/23/2024 11:11 PM JUNIOR MANUFACTURING ENGINEER) Lactate 0.7 0.7 - 2.0 mmol/L Blood 07/23/2024 11:1 1 PM JUNIOR MANUFACTURING ENGINEER 07/23/2024 11:28 PM JUNIOR MANUFACTURING ENGINEER Miguel Godoy MD LAB BLOOD ORDERABLES Final Re sult Performing Organization Address [facility] Co de Phone Number [facility] [address] [place] [address] * eGFR (07/23/2024 11:11 PM JUNIOR MANUFACTURING ENGINEER) eGFR >90 >=60 mL/min/1. 73 m2 Comment: [...] reviewed 2021. Blood 07/23/2024 11:1 1 PM JUNIOR MANUFACTURING ENGINEER 07/23/2024 11:24 PM JUNIOR MANUFACTURING ENGINEER us Miguel Godoy MD LAB BLOOD ORDERABLES Final Re sult [facility] ([place]) [address] [facility] [place] [address] * Differential, auto (07/23/2024 11:11 PM JUNIOR MANUFACTURING ENGINEER) Neutrophil abs 3.5 1.5 - 6.5 K/cumm [...] on 2017. Blood 07/23/2024 11:1 1 PM JUNIOR MANUFACTURING ENGINEER 07/23/2024 11:24 PM JUNIOR MANUFACTURING ENGINEER us Miguel Godoy MD LAB BLOOD ORDERABLES Final Re sult [facility] ([place]) [address] [facility] [place] [address] * CBC with auto differential (07/23/2024 11:11 PM JUNIOR MANUFACTURING ENGINEER) WBC 5.3 3.8 - 9.9 K/cumm Hgb [...] [facility] ([place]) Blood 07/23/2024 11:1 1 PM JUNIOR MANUFACTURING ENGINEER 07/23/2024 11:24 PM JUNIOR MANUFACTURING ENGINEER Miguel Godoy MD LAB BLOOD ORDERABLES Final Re sult [facility] ([place]) [address] [facility] [place] [address] * Magnesium (07/23/2024 11:11 PM JUNIOR MANUFACTURING ENGINEER) Magnesium 1.8 1.4 - 2.5 mg/dL Blood 07/23/2024 11:1 1 PM JUNIOR MANUFACTURING ENGINEER 07/23/2024 11:24 PM JUNIOR MANUFACTURING ENGINEER Miguel Godoy MD LAB BLOOD ORDERABLES Final Re sult Performing Organization Address City/[facility]/ZIP Co de Phone Number [facility] ([place]) [address] [facility] [place] [address] * Lipase (07/23/2024 11:11 PM JUNIOR MANUFACTURING ENGINEER) Lipase 17 10 - 99 Units/L Blood 07/23/2024 11:1 1 PM JUNIOR MANUFACTURING ENGINEER 07/23/2024 11:24 PM JUNIOR MANUFACTURING ENGINEER Miguel Godoy MD LAB BLOOD ORDERABLES Final Re sult [facility] ([place]) [address] [facility] [place] [address] * (ABNORMAL) Comprehensive metabolic panel (07/23/2024 11:11 PM JUNIOR MANUFACTURING ENGINEER) Sodium 134(L) 135 - 145 mmol/L Potassium, [...] [facility] ([place]) Blood 07/23/2024 11:1 1 PM JUNIOR MANUFACTURING ENGINEER 07/23/2024 11:24 PM JUNIOR MANUFACTURING ENGINEER us Miguel Godoy MD LAB BLOOD ORDERABLES Final Re sult [facility] ([place]) [address] [facility] [place] [address] * XR Elbow Left 2 or More Views (06/24/2024 11:00 PM JUNIOR MANUFACTURING ENGINEER) Anatomical Region Laterality Modality Upper Extremities, Elbow Left Compute d Radiography 06/24/2024 11:2 9 PM JUNIOR MANUFACTURING ENGINEER Narrative 06/24/2024 11:30 PM JUNIOR MANUFACTURING ENGINEER EXAM DESCRIPTION: XR ELBOW LEFT 2 VIEWS [...] Agustín Pond M.D. KT: SHAN Report ID: [id number] Reading Location: [id number] Procedure Note Agustín Pond MD - 06/24/2024 [...] Agustín Pond M.D. KT: SHAN Report ID: [id number] Reading Location: [place] [address] Donald Grove MD IMG XR PROCEDURES Final Res ult from Last 3 Months Insurance [facility] Care Teams Door Framer Relationship Specialty Start Date End Date Donald Broussard MD PCP - General Family Medicine 12/25/22
--- OUTSIDE RECORDS SUMMARY | 2024-09-23 22:14 | XMS_ITS | Clinical Summary ---
Author Organization [facility] Address [address] [place] [address] Care Team Providers Care Bun Panner Name Role Phone Donald Broussard MD Primary Care Provider [phone] Allergies Active Allergy Reactions Criticality Noted Date [...] Department Care Team Description 07/23/2024 10:51 PM RECORDS AND TAPE RECORDINGS ENGINEER - 07/24/2024 1:29 AM RECORDS AND TAPE RECORDINGS ENGINEER Emergency [facility] Emergency Department [address] [place] [address] Miguel Godoy MD Abdominal pain (Primary Dx); Cyst of right ovary; Bilious vomiting with nausea Discharge Disposition: Discharge to home or self care 06/27/2024 Telephone [facility] [address] [facility] [address] [place] [id number] Ann Cao MA 06/24/2024 10:13 PM RECORDS AND TAPE RECORDINGS ENGINEER - 06/24/2024 11:28 PM RECORDS AND TAPE RECORDINGS ENGINEER Emergency [facility] Emergency Department [address] [place] [address] Donald Grove MD Elbow pain, chronic, left (Primary Dx); 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) Discharge Disposition: Discharge to home or self care 06/23/2024 Telephone [facility] at [place] [address] [facility] [address] [place] [phone] Donald Broussard MD 1st no show letter [...] on file Legal Sex Female 11:20 AM RECORDS AND TAPE RECORDINGS ENGINEER Gender Identity Female 12/23/2022 9:46 PM CDT Sexual Orientation Straight 12/23/2022 9: 46 PM CDT Obstetrics History Last Filed Vital Signs Vital Sign Reading Time Taken Comments Blood Pressure 140/80 07/24/2024 1:15 AM RECORDS AND TAPE RECORDINGS ENGINEER Pulse 88 07/24/2024 1:15 AM RECORDS AND TAPE RECORDINGS ENGINEER Temperature 36.8 C (98.2 F) 07/23/2024 10:48 PM RECORDS AND TAPE RECORDINGS ENGINEER Respiratory Rate 18 07/23/2024 10:48 PM RECORDS AND TAPE RECORDINGS ENGINEER Oxygen Saturation 97% 07/24/2024 1:15 AM RECORDS AND TAPE RECORDINGS ENGINEER Inhaled Oxygen Concentration - - Weight 99.8 kg (220 lb) 07/23/2024 10:48 PM RECORDS AND TAPE RECORDINGS ENGINEER Height 167.6 cm (5' 6 ) 07/23/2024 10:48 PM RECORDS AND TAPE RECORDINGS ENGINEER Body Mass Index 35.51 07/23/2024 10:48 PM RECORDS AND TAPE RECORDINGS ENGINEER Plan of Treatment Health Maintenance Due Date [...] PELVIS W CONTRAST ED 07/24/2024 12:43 AM RECORDS AND TAPE RECORDINGS ENGINEER URINALYSIS, MICROSCOPIC ONLY STAT 07/23/2024 11:54 PM RECORDS AND TAPE RECORDINGS ENGINEER HCG, URINE, QUALITATIVE STAT 07/23/2024 11:54 PM RECORDS AND TAPE RECORDINGS ENGINEER URINALYSIS AND REFLEX TO MICROSCOPIC AND CULTURE STAT 07/23/2024 11:54 PM RECORDS AND TAPE RECORDINGS ENGINEER CREATINE KINASE (CK), TOTAL STAT 07/23/2024 11:12 PM RECORDS AND TAPE RECORDINGS ENGINEER EGFR STAT 07/23/2024 11:11 PM RECORDS AND TAPE RECORDINGS ENGINEER DIFFERENTIAL AUTO STAT 07/23/2024 11: 11 PM RECORDS AND TAPE RECORDINGS ENGINEER LACTATE Routine 07/23/2024 11:11 PM RECORDS AND TAPE RECORDINGS ENGINEER LIPASE STAT 07/23/2024 11:11 PM RECORDS AND TAPE RECORDINGS ENGINEER MAGNESIUM Routine 07/23/2024 11:11 PM RECORDS AND TAPE RECORDINGS ENGINEER COMPREHENSIVE METABOLIC PANEL STAT 07/23/2024 11:11 PM RECORDS AND TAPE RECORDINGS ENGINEER CBC WITH AUTO DIFFERENTIAL STAT 07/23/2024 11:11 PM RECORDS AND TAPE RECORDINGS ENGINEER INFLUENZA A/B, RSV, AND COVID-19 PCR Routine 07/23/2024 11:11 PM RECORDS AND TAPE RECORDINGS ENGINEER XR ELBOW LEFT 2 OR MORE VIEWS ED 06/24/2024 11:00 PM RECORDS AND TAPE RECORDINGS ENGINEER from Last 3 Months Results * CT Abdomen Pelvis W Contrast (07/24/2024 12:43 AM RECORDS AND TAPE RECORDINGS ENGINEER) Anatomical Region Laterality Modality Body N/A Computed Tomogra phy 07/24/2024 12:5 6 AM RECORDS AND TAPE RECORDINGS ENGINEER Narrative 07/24/2024 1:00 AM RECORDS AND TAPE RECORDINGS ENGINEER EXAM DESCRIPTION: CT ABDOMEN PELVIS W [...] Agustín Pond M.D. KT: SHAN Report ID: [id number] Reading Location: [id number] Procedure Note Agustín Pond MD - 07/24/2024 [...] Agustín Pond M.D. KT: KT Report ID: [id number] Reading Location: [place] [address] Miguel Godoy MD IMG CT PROCEDURES Final Resul t * (ABNORMAL) Urinalysis reflex to microscopic and culture Urine, bladder (07/23/2024 11:54 PM RECORDS AND TAPE RECORDINGS ENGINEER) Color, ur Yellow Yellow Clarity, ur [...] tendency for uric acid stone formation. Source: [facility] [employer] Current Interpretive Data was last revised on [...] (MILL[place]) Urine, bladder 07/23/2024 11 :54 PM RECORDS AND TAPE RECORDINGS ENGINEER 07/23/2024 11:56 PM RECORDS AND TAPE RECORDINGS ENGINEER us Miguel Godoy MD LAB MICROBIOLOGY - GENERAL OR DERABLES Final Result Performing Organization Address [facility] Co de Phone Number [facility] ([place]) [address] [facility] [place] [address] * hCG, urine, qualitative (07/23/2024 11:54 PM RECORDS AND TAPE RECORDINGS ENGINEER) HCG, ur Negative Negative Urine 07/23/2024 11:5 4 PM RECORDS AND TAPE RECORDINGS ENGINEER 07/23/2024 11:56 PM RECORDS AND TAPE RECORDINGS ENGINEER us Miguel Godoy MD LAB URINE ORDERABLES Final Re sult Performing Organization Address City/[facility]/ZIP Co de Phone Number [facility] ([place]) [address] [facility] [place] [address] * (ABNORMAL) Urinalysis, microscopic only (07/23/2024 11:54 PM RECORDS AND TAPE RECORDINGS ENGINEER) WBC, ur 0-5 0 - 5 /HPF RBC, ur 21-50(A) 0 - 2 /HPF [facility] ([place]) Epithelial cells, squamous, ur 1-5 0 - 5 /HPF [facility] ([place]) Bacteria, ur Trace(A) [facility] ([place]) Mucous, ur Present(A) [facility] ([place]) Culture Reflex Comment Reflex conditions for urine culture (WBC >10) not met. [facility] ([place]) Urine, bladder 07/23/2024 11 :54 PM RECORDS AND TAPE RECORDINGS ENGINEER 07/23/2024 11:56 PM RECORDS AND TAPE RECORDINGS ENGINEER Miguel Godoy MD LAB URINE ORDERABLES Final Re sult Performing Organization Address City/[facility]/ZIP Co de Phone Number [facility] ([place]) [address] [facility] [place] [address] * Creatine kinase (CK), total (07/23/2024 11:12 PM RECORDS AND TAPE RECORDINGS ENGINEER) Pathologist [facility] CK 73 30 - 200 Units/L Blood 07/23/2024 11:1 2 PM RECORDS AND TAPE RECORDINGS ENGINEER 07/23/2024 11:24 PM RECORDS AND TAPE RECORDINGS ENGINEER us Miguel Godoy MD LAB BLOOD ORDERABLES Final Re sult Performing Organization Address City/[facility] Co de Phone Number [facility] ([place]) [address] [place] [address] Department [place] [address] * Influenza A/B, RSV, and COVID-19 PCR Nasopharyngeal (07/23/2024 11:11 PM RECORDS AND TAPE RECORDINGS ENGINEER) Pathologist [facility] COVID-19 RNA Negative Negative Influenza A RNA Negative Negative [facility] ([place]) Influenza B RNA Negative Negative [facility] ([place]) RSV RNA Negative Negative [facility] ([place]) Comment: Interpretive data: Testing performed by [facility]. This test is performed using the [employer] Xpert Xpress CoV-2/Flu/RSV plus assay. This is a multiplex, real- time reverse transcriptase PCR assay intended for the qualitative detection of nucleic acid from SARS-CoV-2, influenza A, influenza B, and respiratory syncytial virus. This assay has been cleared by the [place] Food and Drug administration. The performance characteristics have been verified by the [facility]. Results must be considered in the clinical context, and a negative result does not rule out infection. Interpretive Data last revised 2023 Nasopharyngeal 07/23/2024 11 :11 PM RECORDS AND TAPE RECORDINGS ENGINEER 07/23/2024 11:24 PM RECORDS AND TAPE RECORDINGS ENGINEER Narrative [facility] ([place]) - 07/24/2024 12:04 AM RECORDS AND TAPE RECORDINGS ENGINEER Is the Patient experiencing symptoms consistent with COVID?->Yes Miguel Godoy MD LAB MICROBIOLOGY - GENERAL OR DERABLES Final Result [facility] ([place]) [address] [place] [address] [place] [address] * Lactate (07/23/2024 11:11 PM RECORDS AND TAPE RECORDINGS ENGINEER) Lactate 0.7 0.7 - 2.0 mmol/L Blood 07/23/2024 11:1 1 PM RECORDS AND TAPE RECORDINGS ENGINEER 07/23/2024 11:28 PM RECORDS AND TAPE RECORDINGS ENGINEER Miguel Godoy MD LAB BLOOD ORDERABLES Final Re sult Performing Organization Address City/[facility]/ZIP Co de Phone Number [facility] ([place]) [address] [place] [address] [place] [address] * eGFR (07/23/2024 11:11 PM RECORDS AND TAPE RECORDINGS ENGINEER) eGFR >90 >=60 mL/min/1. 73 m2 [...] reviewed 2021. Blood 07/23/2024 11:1 1 PM RECORDS AND TAPE RECORDINGS ENGINEER 07/23/2024 11:24 PM RECORDS AND TAPE RECORDINGS ENGINEER us Miguel Godoy MD LAB BLOOD ORDERABLES Final Re sult [facility] ([place]) [address] [facility] [place] [address] * Differential, auto (07/23/2024 11:11 PM RECORDS AND TAPE RECORDINGS ENGINEER) Neutrophil abs 3.5 1.5 - 6.5 [...] on 2017. Blood 07/23/2024 11:1 1 PM RECORDS AND TAPE RECORDINGS ENGINEER 07/23/2024 11:24 PM RECORDS AND TAPE RECORDINGS ENGINEER us Miguel Godoy MD LAB BLOOD ORDERABLES Final Re sult [facility] ([place]) [address] [facility] [place] [address] * CBC with auto differential (07/23/2024 11:11 PM RECORDS AND TAPE RECORDINGS ENGINEER) WBC 5.3 3.8 - 9.9 K/cumm [...] 11.9 11.1 - 14.9 % [facility] ([facility]) RDW SD 39.2 35.7 - 48.1 fL [facility] ([facility]) NRBC abs 0.00 0.00 - 0.01 K/cumm [facility] ([place]) Blood 07/23/2024 11:1 1 PM RECORDS AND TAPE RECORDINGS ENGINEER 07/23/2024 11:24 PM RECORDS AND TAPE RECORDINGS ENGINEER Miguel Godoy MD LAB BLOOD ORDERABLES Final Re sult Performing Organization Address City/[facility]/ZIP Co de Phone Number [facility] ([place]) 1 [facility] [employer] [place] [address] * Magnesium (07/23/2024 11:11 PM RECORDS AND TAPE RECORDINGS ENGINEER) Magnesium 1.8 1.4 - 2.5 mg/dL Blood 07/23/2024 11:1 1 PM RECORDS AND TAPE RECORDINGS ENGINEER 07/23/2024 11:24 PM RECORDS AND TAPE RECORDINGS ENGINEER Miguel Godoy MD LAB BLOOD ORDERABLES Final Re sult Performing Organization Address [facility] Co de Phone Number [facility] ([place]) [address] [facility] [place] [address] * Lipase (07/23/2024 11:11 PM RECORDS AND TAPE RECORDINGS ENGINEER) Lipase 17 10 - 99 Units/L Blood 07/23/2024 11:1 1 PM RECORDS AND TAPE RECORDINGS ENGINEER 07/23/2024 11:24 PM RECORDS AND TAPE RECORDINGS ENGINEER iMguel Godoy MD LAB BLOOD ORDERABLES Final Re sult Performing Organization Address City/[facility]/ZIP Co de Phone Number [facility] ([place]) [address] [facility] [place] [address] * (ABNORMAL) Comprehensive metabolic panel (07/23/2024 11:11 PM RECORDS AND TAPE RECORDINGS ENGINEER) Sodium 134(L) 135 - 145 mmol/L [...] [facility] ([facility]) Blood 07/23/2024 11:1 1 PM RECORDS AND TAPE RECORDINGS ENGINEER 07/23/2024 11:24 PM RECORDS AND TAPE RECORDINGS ENGINEER us Miguel Godoy MD LAB BLOOD ORDERABLES Final Re sult [facility] ([place]) [address] [facility] [place] [address] * XR Elbow Left 2 or More Views (06/24/2024 11:00 PM RECORDS AND TAPE RECORDINGS ENGINEER) Anatomical Region Laterality Modality Upper Extremities, Elbow Left Compute d Radiography 06/24/2024 11:2 9 PM RECORDS AND TAPE RECORDINGS ENGINEER Narrative 06/24/2024 11:30 PM RECORDS AND TAPE RECORDINGS ENGINEER EXAM DESCRIPTION: XR ELBOW LEFT 2 [...] Agustín Pond M.D. KT: SHAN Report ID: [id number] Reading Location: [id number] Procedure Note Agustín Pond MD - 06/24/2024 [...] Agustín Pond M.D. KT: SHAN Report ID: [id number] Reading Location: [place] [address] Donald Grove MD IMG XR PROCEDURES Final Res ult from Last 3 Months Insurance [facility] Care Teams Bun Panner Relationship Specialty Start Date End Date Donald Broussard MD PCP - General Family Medicine 12/25/22
--- OUTSIDE RECORDS SUMMARY | 2024-09-23 22:14 | XMS_ITS | Clinical Summary ---
Author Organization [facility] Address [address] [place] [address] Phone Care Team Providers Care Mold Dresser Name Role Phone Donald Broussard MD Primary Care Provider [phone] Allergies Active Allergy Reactions Criticality Noted Date [...] this topic Medical Devices Implanted Type Area [employer] Music Director Device Identifier Shelf Expiration Date Model / Serial / Lot Endo Clip Ii 10mm [id number] - [id number] Implanted:Qt y: 1 on 04/13/2024 by Sacha Peterson DO at [facility] Clip N/A: Abdomen [employer] - COVIDIEN [id number] 11/07/2028 [id number] / / [id number] Hemostat Surg Snow 2x4in 2081 - [id number] Implanted:Qt y: 1 on 04/13/2024 by Sacha Peterson DO at [facility] Hemostatic N/A: Abdomen J&J- [employer] [id number] 11/07/2025 2082 / / [id number] Hemostat Surg Snow 2x4in 2081 - [id number] Implanted:Qt y: 1 on 04/13/2024 by Sacha Peterson DO at [facility] Hemostatic N/A: Abdomen J&J- [employer] [id number] 12/07/2025 2082 / / [id number] Screw- 024 Implanted: (Quantity not on file) Screw Elbow Insurance [place] RX [facility] [employer] Advance Directives For more information, please contact: [phone] * Full Code (Latest Code Status on File) Date Activated Date Inactivated Comments 04/13/2024 12:19 PM 04/14/2024 6:43 PM * Full Code Date Activated Date Inactivated Comments 04/12/2024 10:40 AM 04/13/2024 12:19 PM Care Teams Mold Dresser Relationship Specialty Start Date End Date Donald Broussard MD [address] [facility] [address] [address] PCP - General Family Practice 04/12/24
--- OUTSIDE RECORDS SUMMARY | 2024-09-23 22:14 | XMS_ITS | Clinical Summary ---
Author Organization [facility] Address [address] [place] [address] Phone Care Team Providers Care Jacquard Loom Card Changer Name Role Phone Donald Broussard MD Primary Care Provider [phone] Allergies Active Allergy Reactions Criticality Noted Date [...] on file Legal Sex Female 9:50 AM COST RECORDER Gender Identity Not on file Sexual Orientation Not on file Last Filed Vital Signs Vital Sign Reading Time Taken Comments Blood Pressure 114/64 06/20/2024 1:32 AM COST RECORDER Pulse 71 06/20/2024 1:32 AM COST RECORDER Temperature 37.1 C (98.7 F) 06/19/2024 10:05 PM COST RECORDER Respiratory Rate 16 06/19/2024 10:05 PM COST RECORDER Oxygen Saturation 100% 06/20/2024 1:32 AM COST RECORDER Inhaled Oxygen Concentration - - Weight 99.8 kg (220 lb) 06/19/2024 10:05 PM COST RECORDER Height 167.6 cm (5' 6 ) 06/19/2024 10:05 PM COST RECORDER Body Mass Index 35.51 06/19/2024 10:05 PM COST RECORDER Plan of Treatment Health Maintenance Due Date [...] this topic Medical Devices Implanted Type Area Desulfurizer Hand Device Identifier Shelf Expiration Date Model / Serial / Lot 2.5 X 32mm Headless Compression Screw Implanted:Qty: 2 on 08/26/2023 by Nuno Stoll MD at [facility] Left: Elbow IRWIN [id number] / [id number] / [id number] 3.0 X 30mm Headed Screw Implanted:Qty: 1 on 08/26/2023 by Nuno Stoll MD at [facility] Left: Elbow [id number] / [id number] / [id number] 3.0 X 32mm Headed Screw Implanted:Qty: 1 on 08/26/2023 by Nuno Stoll MD at [facility] Left: Elbow IRWIN [id number] / [id number] / [id number] Insurance MED[place]ID [place] [employer] Care Teams Jacquard Loom Card Changer Relationship Specialty Start Date End Date Donald Broussard MD [address] [facility] [address] [place] [address] [place] [id number] PCP - General Family Medicine 06/11/23
== END 2024-09-23 23:12 | disposition left against medical advice (07) ==
PROVIDERS: Emergency Provider Physician Assistant; PCP Family Medicine
DX: M25.422 Effusion, left elbow (principal)
CPT/HCPCS: 73080; 99199

== ENCOUNTER 2024-10-26 10:24 | Emergency (ER) | payer OTHER, SELFPAY ==
[2024-10-26 10:30] VITALS: BP 130/69; PULSE 88; RESP 16; TEMP 36.4; O2SAT 98
--- NOTE | 2024-10-26 10:49 | ED.SKABFB ---
HPI - Skin/Abscess/Foreign Bdy General Chief complaint: Skin/Abscess/Foreign Body Stated complaint: SKIN RASH Time Seen by Provider: 10/26/24 10:49 Source: patient, RN notes reviewed and old records reviewed Mode of arrival: ambulatory Limitations: no limitations History of Present Illness HPI narrative: 24 year old female who presents to express care with complaints of rash to the dorsal aspects of bilateral hands in patches noted which is dry scaly in appearance for one month duration which is itchy.. Patient reports that her hands are painful at times and she has noted some weeping from rash, denies any pustule or vesicle formation. Patient reports that she now has small patch of similar rash on her abdomen and on legs. Patient does report history of eczema as child but has not had any flares for years. Patient denies any new medications food, soaps, lotions or any new laundry products or exposures at work to chemicals.She states that she has been applying hydrocortisone ointment to rash with no improvement. MD complaint: rash Onset (ago): month(s) (1) Location: L hand (dorsal left and right hand), R hand, LLE and RLE Severity: moderate Quality: aching and pruritic Treatments prior to arrival: OTC topical medication (hydrocortisone ointment) Related Data Allergies Allergy/AdvReac Type Severity Reaction Status Date / Time banana Allergy Severe Swelling Verified 10/26/24 10:43 of Lip/Tongue/Throat Review of Systems Review of Systems: CONSTITUTIONAL: Denies fever, chills, or sweats. CARDIOVASCULAR: Denies chest pain, palpitations, or edema. RESPIRATORY: Denies cough or dyspnea. SKIN: Reports dry flaky patches of skin to dorsal hands itchy and painful at times, reports some weeping, no pustules or vesicles, small dry patchy area to abdomen, some areas also to lower legs. MUSCULOSKELETAL: Denies joint pain or myalgia. NEUROLOGIC: Denies headache, numbness, or weakness. All systems reviewed & are unremarkable except as noted in HPI and below PMFSH Past Medical History Medical History (Updated 10/27/24 @ 10:21 by Leeanna Bonilla NP) Eczema Depression Hx of migraines Surgical History Surgical History Hx of elbow surgery internal fixation with screws left Social History Social History Smoking status: Never smoker Alcohol intake: current Alcohol use details: social Substance use type: does not use Living arrangements: with family Gender identity (if verbalized by the patient): Female Comments At time of signature, agree with nursing past medical, surgical, social and family history. There is no relevant family history pertinent to the presenting complaint Exam Narrative: GENERAL: Well-appearing, well-nourished, and in no acute distress. HEAD: Normocephalic, atraumatic. EYES: PERRLA, conjunctivae clear, and EOMI. ENT: Mucous membranes moist. Oropharynx without edema, erythema or lesions. NECK: Supple. No lymphadenopathy CHEST: Clear to auscultation. No respiratory distress. SAO2 98% on room air HEART: Regular rate and rhythm. SKIN: Warm, dry.? Patches of erythema and scaly skin patches to the dorsal aspects of bilateral hands and also small area to abdomen with dry red skin and patch to bilateral lower legs that is itchy NEURO:? Alert and oriented x3. PSYCH: Normal mood and affect Course Course Emergency Course: Patient is aware of diagnosis, understands and agrees to treatment plan.? Anticipatory guidance given.? Patient agrees to follow-up as directed and is aware of reasons to seek care at the emergency department. Portions of this record may have been created with voice recognition software Level of Care: Express Care Visit Vital Signs Vital signs: Vital Signs Temperature 36.4 C 10/26/24 10:30 Pulse Rate 88 10/26/24 10:30 Respiratory Rate 16 10/26/24 10:30 Blood Pressure 130/69 10/26/24 10:30 Pulse Oximetry 98 10/26/24 10:30 Oxygen Delivery Room Air 10/26/24 10:30 Temperature 36.4 C 10/26/24 10:30 Pulse Rate 88 10/26/24 10:30 Respiratory Rate 16 10/26/24 10:30 Blood Pressure 130/69 10/26/24 10:30 Pulse Oximetry 98 10/26/24 10:30 Oxygen Delivery Room Air 10/26/24 10:30 Reviewed MDM - Skin/Abscess/Foreign Bdy MDM Narrative Medical decision making narrative: Does not appear at this time to be erythema multiforme, bullous, SJS, TEN; no evidence at this time to suggest RMSF, endocarditis or Lyme disease; patient looks well, nontoxic and is tolerating oral intake; no neurologic signs or symptoms; no headache, photophobia or neck pain; afebrile; appropriate for initial outpatient treatment; discussed the importance of follow-up, patient agrees; question, viral exanthema, contact dermatitis, allergic dermatitis, eczema, urticaria, [ xx ]. No soft palate or uvula edema, no tongue, lip edema or other mucosal involvement, no respiratory compromise, no stridor, no wheezing, no wheezing, no history of syncope, no hypotension, no nausea, vomiting, or diarrhea.? Instructed patient to go to nearest ER immediately for any worsening symptoms including but not limited to: fever, spreading rash, pain, sore throat, headache, dizziness, chest pain, trouble breathing, or any symptoms concerning to the patient. Differential Diagnosis Differential diagnosis: Likely abscess of skin or subcutaneous tissue, dermatophytosis, cellulitis, eczema and contact dermatitis Medical Records Attestation: I reviewed the patient's medical records. Critical Care Time Critical Care Time Critical Care Time: No Discharge Plan Discharge Clinical Impression: Eczema of both hands Eczema Qualifiers: Eczema type: unspecified Qualified Code(s): L30.9 - Dermatitis, unspecified Patient Disposition: Home, Self-Care Condition: Stable Instructions: Antibiotic Form, Eczema (ED) Additional Instructions: Wash hands well with liquid Dial soap rinse pat dry and apply triamcinolone ointment to rash area twice daily never apply this ointment to the face watch for any infection--redness, swelling, drainage Tylenol or ibuprofen for any fever pain follow up with PCP in 7-10 days for a wound check recheck if develop fever, chills, increasing symptom Go to the ER if your symptoms become worse of if ANY new symptoms develop Prednisone taper take as prescribed with food take dose in morning If your symptoms persist, change or worsen significantly before you can contact your personal physician then please, without delay, go to the emergency department for further evaluation. Follow-up with PCP in 7-10 days or sooner if needed Follow up with PCP soon in regards to your blood pressure which is elevated above threshold for referral. Blood pressure above 120/80 may indicate pre-hypertension. 130/69 Patient Language: Turkish Prescriptions: New prednisone 10 mg tablet 10 mg PO DIRECTED Qty: 21 0RF Rx Instructions: see taper instructions 6 tabs day one, 5 tabs day 2, 4 tabs day 3, 3 tabs day 4, 2 tabs day 5. 1 tab days 6 triamcinolone acetonide 0.1 % ointment 1 applic topical BID Qty: 80 0RF Rx Instructions: apply to rash up to 2 x daily, never apply to the face Follow-up/Referrals: Bobo,Donald Gore MD [Primary Care Provider] - Time of Disposition: 11:09 Quality Minh Coma Scale Eyes: Open Verbal: Oriented and Alert Motor: Follows Commands [place] Coma Total Score: 15
--- OUTSIDE RECORDS SUMMARY | 2024-10-26 11:54 | XMS_ITS | Clinical Summary ---
Author Organization [facility] Address [address] [place] [address] Care Team Providers Care Funeral Home Makeup Artist Name Role Phone Donald Broussard MD Primary Care Provider [phone] Allergies Active Allergy Reactions Criticality Noted Date [...] Psychophysiological insomnia 11/02/2023 Migraine headache 11/01/2014 Immunizations Immunization Administration Dates Next Due DTaP 03/25/2002,2001,2001 DTaP [...] History Medical History Relation Name Comments Depression Brothlatia Pereyra Arthritis Father Abimael Pereyra Migraines Father Abimael Roddy Family histo ry of migraine headaches - (Added by TW Conv) Rashes / Skin problems Father Abimael Roddy Cancer Maternal Grandmother Ivania Brewer Diabetes Maternal Grandmother Ivania Brewer Depression Mother Marty Grullon Diabetes Mother Marty Grullon Mental illness Mother Staraisha Grullon Migraines Mother Marty Grullon Family histor y of migraine headaches - (Added by TW Conv) Epilepsy Sister 1 Family history of epilepsy - (Added by TW Conv) Learning disabilities Sister 2 Antonio Pereyra Relation Name Status Comments Brother Serafin Pereyra Father Abimael Pereyra Maternal Grandmother Ivania Calvomer Mother Marty Grullon Sister 1 Sister 2 [...] on file Legal Sex Female 11:20 AM VICE PRESIDENT FINANCIAL Gender Identity Female 12/23/2022 9:46 PM CDT Sexual Orientation Straight 12/23/2022 9: 46 PM CDT Obstetrics History Last Filed Vital Signs Vital Sign Reading Time Taken Comments Blood Pressure 140/80 07/24/2024 1:15 AM VICE PRESIDENT FINANCIAL Pulse 88 07/24/2024 1:15 AM VICE PRESIDENT FINANCIAL Temperature 36.8 C (98.2 F) 07/23/2024 10:48 PM VICE PRESIDENT FINANCIAL Respiratory Rate 18 07/23/2024 10:48 PM VICE PRESIDENT FINANCIAL Oxygen Saturation 97% 07/24/2024 1:15 AM VICE PRESIDENT FINANCIAL Inhaled Oxygen Concentration - - Weight 99.8 kg (220 lb) 07/23/2024 10:48 PM VICE PRESIDENT FINANCIAL Height 167.6 cm (5' 6 ) 07/23/2024 10:48 PM VICE PRESIDENT FINANCIAL Body Mass Index 35.51 07/23/2024 10:48 PM VICE PRESIDENT FINANCIAL Plan of Treatment Health Maintenance Due Date Last Done Comments Cervical Cancer Screening 2001 Chlamydia and Gonorrhea (GC/CT) Screening 2001 Hepatitis C Screening 2001 Regular Well Visit/Exam 18-64 2019 HPV Vaccines (2 - 3-dose series) 07/03/2020 06/05/2020 Meningococcal B Vaccine (2 of 2 - Bexsero SCDM 2-dose series) 12/04/2020 06/05/2020 Depression Screening 12/26/2023 12/25/2022, 12/26/19 23 Covid-19 Vaccine (2 - season) 2024 11/27/2020 Influenza Vaccine (#1) 2024 , 06/05/2020, 05/02/2013, Additional history exists DTaP/Tdap/Td Vaccine (8 - Td or Tdap) 07/14/2033 07/14/2023, 08/26/2012, 05/02/2011, Additional history exists Hepatitis B Screening Completed 09/30/2011 , 05/02/2011, 02/24/2011, Additional history exists Varicella Vaccines Completed 09/30/2011, 02/24/2011 Pneumococcal vaccine <65 Aged Out No longer eligible based on patient's age to complete this topic Insurance [facility] Care Teams Funeral Home Makeup Artist Relationship Specialty Start Date End Date Donald Broussard MD PCP - General Family Medicine 12/25/22
--- OUTSIDE RECORDS SUMMARY | 2024-10-26 11:54 | XMS_ITS | Referral Summary ---
Author Organization [facility] Address [address] [place] [address] Care Team Providers Care Outpatient Coder Name Role Phone Donald Broussard MD Primary Care Provider [phone] Allergies Active Allergy Reactions Criticality Noted Date [...] on file Legal Sex Female 11:20 AM DIETARY WORKER Gender Identity Female 12/23/2022 9:46 PM CDT Sexual Orientation Straight 12/23/2022 9: 46 PM CDT Last Filed Vital Signs Vital Sign Reading Time Taken Comments Blood Pressure 140/80 07/24/2024 1:15 AM DIETARY WORKER Pulse 88 07/24/2024 1:15 AM DIETARY WORKER Temperature 36.8 C (98.2 F) 07/23/2024 10:48 PM DIETARY WORKER Respiratory Rate 18 07/23/2024 10:48 PM DIETARY WORKER Oxygen Saturation 97% 07/24/2024 1:15 AM DIETARY WORKER Inhaled Oxygen Concentration - - Weight 99.8 kg (220 lb) 07/23/2024 10:48 PM DIETARY WORKER Height 167.6 cm (5' 6 ) 07/23/2024 10:48 PM DIETARY WORKER Body Mass Index 35.51 07/23/2024 10:48 PM DIETARY WORKER Plan of Treatment Not on file Insurance [facility] Care Teams Outpatient Coder Relationship Specialty Start Date End Date Donald Broussard MD PCP - General Family Medicine 12/25/22
--- OUTSIDE RECORDS SUMMARY | 2024-10-26 11:54 | XMS_ITS | Clinical Summary ---
Author Organization [facility] Address [address] [place] [address] Phone Care Team Providers Care Oracle Sql Developer Name Role Phone Donald Broussard MD Primary Care Provider [phone] Allergies Active Allergy Reactions Criticality Noted Date [...] Date Smoking Tobacco: Every Day Cigarettes 0.5 3.2 Started: 2021 Smokeless Tobacco: Never Tobacco Cessation:Ready to Q uit: Yes; Counseling Given: Yes Alcohol Use Standard Drinks/Week Comments Yes 2 (1 standard drink = 0.6 oz pur e alcohol) 1-3 DRINKS PER MONTH Sexually Active Control Partners Comments Yes Female Condom Comments No Sex and Gender Information Value Date Recorded Sex Assigned at Not on file Legal Sex Female 9:50 AM IDENTITY ACCESS MANAGEMENT ARCHITECT Gender Identity Not on file Sexual Orientation Not on file Last Filed Vital Signs Vital Sign Reading Time Taken Comments Blood Pressure 114/64 06/20/2024 1:32 AM IDENTITY ACCESS MANAGEMENT ARCHITECT Pulse 71 06/20/2024 1:32 AM IDENTITY ACCESS MANAGEMENT ARCHITECT Temperature 37.1 C (98.7 F) 06/19/2024 10:05 PM IDENTITY ACCESS MANAGEMENT ARCHITECT Respiratory Rate 16 06/19/2024 10:05 PM IDENTITY ACCESS MANAGEMENT ARCHITECT Oxygen Saturation 100% 06/20/2024 1:32 AM IDENTITY ACCESS MANAGEMENT ARCHITECT Inhaled Oxygen Concentration - - Weight 99.8 kg (220 lb) 06/19/2024 10:05 PM IDENTITY ACCESS MANAGEMENT ARCHITECT Height 167.6 cm (5' 6 ) 06/19/2024 10:05 PM IDENTITY ACCESS MANAGEMENT ARCHITECT Body Mass Index 35.51 06/19/2024 10:05 PM IDENTITY ACCESS MANAGEMENT ARCHITECT Plan of Treatment Health Maintenance Due Date [...] this topic Medical Devices Implanted Type Area Aerotriangulation Specialist Device Identifier Shelf Expiration Date Model / Serial / Lot 2.5 X 32mm Headless Compression Screw Implanted:Qty: 2 on 08/26/2023 by Nuno Stoll MD at [facility] Left: Elbow IRWIN [id number] / [id number] / [id number] 3.0 X 30mm Headed Screw Implanted:Qty: 1 on 08/26/2023 by Nuno Stoll MD at [facility] Left: Elbow [id number] / [id number] / [id number] 3.0 X 32mm Headed Screw Implanted:Qty: 1 on 08/26/2023 by Nuno Stoll MD at [facility] Left: Elbow IRWIN [id number] / [id number] / [id number] Insurance MED[place]ID [place] [employer] Care Teams Oracle Sql Developer Relationship Specialty Start Date End Date Donald Broussard MD [address] [place] [address] [place] [id number] PCP - General Family Medicine 06/11/23
--- OUTSIDE RECORDS SUMMARY | 2024-10-26 11:54 | XMS_ITS | Clinical Summary ---
Author Organization [facility] Address [address] [place] [address] Phone Care Team Providers Care Armor Reconnaissance Specialist Name Role Phone Donald Broussard MD Primary Care Provider [phone] Allergies Active Allergy Reactions Criticality Noted Date [...] Encounters Date Type Department Care Team Description 10/17/2024 External Device Data STL ABSTRACTION Provider, Abstract 10/15/2024 External Device Data STL ABSTRACTION Provider, Abstract 10/14/2024 External Device Data STL ABSTRACTION Provider, Abstract 10/11/2024 External Device Data ST[facility] ABSTRACTION Provider, Abstract 09/28/2024 External Device Data ST[facility] ABSTRACTION Provider, Abstract 09/27/2024 External Device Data STL ABSTRACTION Provider, Abstract 09/13/2024 External Device Data STL ABSTRACTION Provider, [...] 05/02/2011, 02/24/2011, Additional history exists PNEUMOCOCCAL VACCINE 0-49 YEARS Aged Out No longer eligible based on patient's age to complete this topic Medical Devices Implanted Type Area Field Service Coordinator Device Identifier Shelf Expiration Date Model / Serial / Lot Endo Clip Ii 10mm [id number] - [id number] Implanted:Qt y: 1 on 04/13/2024 by Sacha Peterson DO at [facility] Clip N/A: Abdomen [employer] - COVIDIEN [id number] 11/07/2028 [id number] / / [id number] Hemostat Surg Snow 2x4in 2081 - [id number] Implanted:Qt y: 1 on 04/13/2024 by Sacha Peterson DO at [facility] Hemostatic N/A: Abdomen J&J- [employer] [id number] 11/07/2025 2082 / / [id number] Hemostat Surg Snow 2x4in 2081 - [id number] Implanted:Qt y: 1 on 04/13/2024 by Sacha Peterson DO at [facility] Hemostatic N/A: Abdomen J&J- [employer] [id number] 12/07/2025 2082 / / [id number] Screw- 024 Implanted: (Quantity not on file) Screw Elbow Insurance [place] [facility] [employer] Advance Directives For more information, please contact: [phone] * Full Code (Latest Code Status on File) Date Activated Date Inactivated Comments 04/13/2024 12:19 PM 04/14/2024 6:43 PM * Full Code Date Activated Date Inactivated Comments 04/12/2024 10:40 AM 04/13/2024 12:19 PM Care Teams Armor Reconnaissance Specialist Relationship Specialty Start Date End Date Donald Broussard MD [address] [place] [address] [place] [id number] PCP - General Family Practice 04/12/24
--- OUTSIDE RECORDS SUMMARY | 2024-10-26 11:54 | XMS_ITS | Data Portability ---
Author Organization [facility] Address [address] [place] [address] Care Team Providers Care Supervisor Laboratory Name Role Phone MARLENADIAZGENIE Primary Care Provider Assessment No assessment recorded. Plan of Treatment Reminders Order Date Submit Date Provider Last Modified By Organization Details Last Modified Time Details Appointments [facility] 2024 08:45A JOEL Grover Not available Not available Not available Lab None recorded. Referral None recorded. Procedures None recorded. Surgeries None recorded. Imaging None recorded. Medication Orders metronida zole 500 mg tablet 2023 024 [facility] [place], [address], 03/08/2024 09:40:09 Slynd 4 mg (28) tablet 2023 024 [facility], [address] [place] [address], [address], 03/08/2024 09:44:09 Slynd 4 mg (28) tablet [address] [facility] [place], [address], 12/08/2023 16:52:15 Patient TargetsNo targets recorded. Patient InstructionsNo instructions recorded. Reason for Referral None Reported. Results Created Date Observation Date Name Description Value Unit Range Abnormal Flag Note LastModifiedBy Organization Detail LastModifiedTime 04/30/20 24 12/08/2023 IMAGE GUIDE D PAP, REFLE X HPV IF ASCUS ONLY image guided Pap, reflex HPV ASCUS only SEE RESULT S BELOW abnormal CASE REPOR T: Cytol ogy Gynec ologi jairo Repor t Case: [id number] Autho spenser cameron Provi ranulfo: Dagmar reese , Lewis Errol Holloway cted: 12/07 1708 WOOLEN SUITING SHRINKER Order ing Locat ion: [place] [facility] Recei malissa: 12/08 0901 First Scree n: Dyan Agustin Patho logis t: Lisset [...] patie nt consi derat ions. Not Available [facility] (Lab) [address], [place], [address], 12/14/2023 16:07:12 12/08/19 24 12/08/2023 TRICH OMONA S VAGIN SIL (RRNA ) trichomonas vaginalis ribosomal RNA (rrna) Negati ve negati ve Not Available [facility] (Lab) [address], [place], [address], 12/14/2023 16:07:12 12/08/19 24 12/08/2023 CT/GC (EVELINE) , THINP REP VIAL chlamydia trachomatis, PCR Negati ve negati ve Not Available [facility] (Lab) [address], [place], [address], 12/14/2023 16:07:13 12/08/19 24 12/08/2023 CT/GC (EVELINE) , THINP REP VIAL neisseria gonorrhoeae, PCR Negati ve negati ve Not Available [facility] (Lab) [address] [place], [address], 12/14/2023 16:07:13 Result Notes None recorded. Procedures Surgical History Date Name Laterality Status Provider Name and Address Organization Details Recorded Time 4 Date of Last Pap Smear completed Rachel [facility]ano [facility] 03/07/2024 15:30:58 Orthopedic Surgery completed Alanna Hernandes [facility] 12/08/2023 16:35:54 Imaging Results None recorded. Procedure Notes None recorded. Medical Equipment None Reported. Allergies Allergen ID Allergen Name Allergen Category Reaction Reaction Severity Criticality Documentation Date Start Date Code Code System Note Provider Name and Address Organization Details Recorded Time 24764 banana extract food,medi cation anaphylax is moderate Not available 12/08/2023 57450 9 RxNorm Alanna Albertoer [facility] 4 16:32:24 Medications Name Sig Start Date Stop [...] completed Not Available Not Available Not Available doxycycline hyclate 100 mg capsule TAKE 1 CAPSULE BY MOUTH TWICE DAILY FOR 5 DAYS active Not Available Not Available No t Available hydrocodone 5 mg-acetamin ophen 325 mg [...] 1 TABLET BY MOUTH THREE TIMES DAILY WITH FOOD active Not Available Not Available No t Available oxycodone 5 mg tablet active Not Available Not Available No t [...] Updated DateTime 12/08/2023 167.64 cm 38.1 kg/m2 536157.8 g 139 mm[Hg] 84 mm[Hg] Alanna Hernandes [facility] 16:32:18 Date Recorded Body height Body mass index (BMI) Body weight Systolic blood pressure Diastolic blood pressure Provider Name and Address Organization Details Last Updated DateTime 03/08/2024 167.64 cm 38.9 kg/m2 626104.7 6 g 130 mm[Hg] 84 mm[Hg] Rachel Montano [facility] 4 09:31:20 Social History Question Answer Notes LastModified by Organizat ion Details LastModified Time Tobacco Smoking Status Former Smoker Alanna Hernandes [facility] 12/08/2023 16:35:27 Do You Have An [...] Or The Highest Degree You Have Received? 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 [id number] Information not available 12/08/2023 Do You Use [...] have difficulty walking or climbing stairs? No [email or web address] Information not available 03/07/2024 Are you able to walk? YESWOREST Information not available 12/08/2023 Are you able to care for yourself? Yes Information not available 03/07/2024 Do you have difficulty dressing or bathing? No [email or web address] Information not available 03/07/2024 What is your [...] SNOMED-CT Code Diagnosis ICD10 Code Diagnosis Note [id number] Va Lenz [facility] [address] [address] 12/08/2023 16:17:29 12/09/2023 05:26:27 Gynecologic examination [id number] Z01.419 Take Calcium with Vitamin D 1200mg [...] c Screen discussedC olon Screen [facility] Consider if unable to manage menses with pop Secondary dysmenorrhea 40480247 N94.5 Discussed all control options in great [...] Tylenol q8hrs x 2-3d. [id number] JOEL Santa [place] [address] [address] 03/08/2024 09:26:10 03/08/2024 09:56:47 Vaginitis 08290195 N76.0 rx sent for BVr/b/a reviewed, vulvar care guidelines discussed Secondary dysmenorrhea 15011929 N94.5 Patient is here today for a [...] Dutta Member ID Guarantor Name 12/08/2023 1 [facility] (MEDICAID HMO) [id number] Mary Pereyra [id number] Mary Pereyra 03/08/2024 1 [facility] (MEDICAID HM) [id number] Mary Pereyra [id number] Mary Pereyra Notes Date Note Type Note [...] 18yo control pills--then lost insurance JOEL Chadwick- [address], [place], [address], [facility] 12/08/2023 17:13:31 03/08/2024 text/html 23yopresents for med checkstarted slynd at LOVperiods much better! 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 03/08/2024 09:52:12 OBGyn Episode No OBEpisode recorded.
== END 2024-10-26 11:11 | disposition home or self-care (01) ==
PROVIDERS: Emergency Provider Registered Nurse; PCP Family Medicine
DX: L30.9 Dermatitis, unspecified (principal)
CPT/HCPCS: 99213; G0463

== ENCOUNTER 2025-04-15 10:02 | Emergency (ER) | payer SELFPAY ==
--- OUTSIDE RECORDS SUMMARY | 2025-04-15 10:07 | XMS_ITS | Clinical Summary ---
Author Organization [facility] Address [address] [place] [address] Phone Care Team Providers Care Pants Presser Automatic Name Role Phone Donald Broussard MD Primary Care Provider [phone] Allergies Active Allergy Reactions Criticality Noted Date [...] Encounters Date Type Department Care Team Description 04/11/2025 External Device Data STL ABSTRACTION Provider, Abstract 04/11/2025 External Device Data STL ABSTRACTION Provider, Abstract 03/28/2025 External Device Data STL ABSTRACTION Provider, Abstract 02/22/2025 External Device Data STL ABSTRACTION Provider, Abstract 02/22/2025 External Device Data STL ABSTRACTION Provider, Abstract 02/22/2025 External Device Data STL ABSTRACTION Provider, Abstract 02/21/2025 External Device Data STL ABSTRACTION Provider, Abstract 01/31/2025 External Device Data STL ABSTRACTION Provider, Abstract 01/24/2025 External Device Data STL ABSTRACTION Provider, Abstract [...] No 04/12/2024 Food Insecurity Answer Date Recorded Patient needs follow up regardin 12/18/2024 Transportation Needs Answer Date Record ed Patient needs follow up regardin 12/18/2024 Housing Stability Answer Date Recorded Social/Environmental Concerns No concerns Utility Needs Answer Date Recorded Patient needs follow up regardin 12/18/2024 Comments No Sex and Gender Information Value [...] 8:37 AM CDT Height 167.6 cm (5' 6) 05/26/2024 8:37 AM CDT Body Mass Index 37.26 05/26/2024 8:37 AM CDT Plan of Treatment Health Maintenance Due Date Last Done Comments CHLAMYDIA SCREENING (ANNUAL) 11-24 YEARS 2012 HPV VACCINES (2 - 3-dose series) 07/03/2020 06/05/20 20 HPV/Cotest (21-29) 2022 INFLUENZA VACCINE (#1) 2025 , 06/05/2020, 05/02/2013, Additional history exists CERVICAL CANCER SCREENING 12/07/2026 PAP SMEAR 12/07/2026 12/08/2023 DTAP/TDAP/TD VACCINES (7 - T d or Tdap) 07/14/2033 07/14/2023, 05/02/2011, 02/24/2011, Additional history exists HEPATITIS B VACCINES Completed 09/30/2011, 05/02/2011, 02/24/2011, Additional history exists Medical Devices Implanted Type Area Home Care Music Therapist Device Identifier Shelf Expiration Date Model / Serial / Lot Endo Clip Ii 10mm [id number] - [id number] Implanted:Qt y: 1 on 04/13/2024 by Sacha Peterson DO at [facility] Clip N/A: Abdomen [employer] - COVIDIEN [id number] 11/07/2028 [id number] / / [id number] Hemostat Surg Snow 2x4in 2081 - [id number] Implanted:Qt y: 1 on 04/13/2024 by Sacha Peterson DO at [facility] Hemostatic N/A: Abdomen J&J- [employer] [id number] 11/07/2025 2082 / / [id number] Hemostat Surg Snow 2x4in 2081 - [id number] Implanted:Qt y: 1 on 04/13/2024 by Sacha Peterson DO at [facility] Hemostatic N/A: Abdomen J&J- [employer] [id number] 12/07/2025 2082 / / [id number] Screw- 024 Implanted: (Quantity not on file) Screw Elbow Insurance [place] [employer] [facility] [employer] Advance Directives For more information, please contact: [phone] * Full Code (Latest Code Status on File) Date Activated Date Inactivated Comments 04/13/2024 12:19 PM 04/14/2024 6:43 PM * Full Code Date Activated Date Inactivated Comments 04/12/2024 10:40 AM 04/13/2024 12:19 PM Care Teams Pants Presser Automatic Relationship Specialty Start Date End Date Donald Broussard MD [address] [place] [id number] PCP - General Family Practice 04/12/24
--- OUTSIDE RECORDS SUMMARY | 2025-04-15 10:07 | XMS_ITS | Clinical Summary ---
Author Organization [facility] Address [address] [place] [address] Phone Care Team Providers Care Sales Department Clerk Name Role Phone Donald Broussard MD Primary Care Provider [phone] Allergies Active Allergy Reactions Criticality Noted Date Comments Banana Anaphylaxis 08/26/2023 Medications HYDROcodone-cindy taminophen (NORCO) 5-325 MG TabletIndicatio ns:Closed fracture of left elbow, initial encounter Take 1-2 Tablets by mouth every 4 hours as needed for Moderate or more severe pain. 12 Tablet 4 Active betamethasone dipropionate, augmented, (DIPROLENE-AF) 0.05 % Cream Apply 2 times daily. Application Site: lesions on hands (Description and Location) 15 g 1 5 Active Active Problems Problem Noted Date Diagnosed Date Closed fracture of capitellu m of distal humerus, left, initial encounter 08/26/2023 Encounters Date Type Department Care Team Description 03/04/2025 11:17 PM CDT - 03/05/2025 1:24 AM CDT Emergency [facility] [address] [place] [address] Geovanny Jeffery MD Left elbow pain Discharge Disposition: Discharged to home or Selfcare 03/04/2025 Travel from Last 3 Months Family History Medical History Relation Name Comments High Cholesterol Father Hypertension Father Diabetes Mother Relation Name Status Comments Father Alive Mother Social History Tobacco Use Types Packs/Day Years Used Date Smoking Tobacco: Former Cigarettes 0.5 3.7 S tarted: 2021 Smokeless Tobacco: Never Tobacco Cessation:Counseling Given: Not Answered Alcohol Use Standard Drinks/Week Comments Yes 2 (1 standard drink = 0.6 oz pur e alcohol) 1-3 DRINKS PER MONTH Sexually Active Control Partners Comments Yes Female Condom Comments No Sex and Gender Information Value Date Recorded Sex Assigned at Not on file Legal 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 Gender Identity Not on file Sexual Orientation Not on file Last Filed Vital Signs Vital Sign Reading Time Taken Comments Blood Pressure 130/71 03/05/2025 1:23 AM CDT Pulse 91 03/05/2025 1:23 AM CDT Temperature 37.4 C (99.4 F) 03/04/2025 11:21 PM CDT Respiratory Rate 18 03/05/2025 1:23 AM CDT Oxygen Saturation 99% 03/05/2025 1:23 AM CDT Inhaled Oxygen Concentration - - Weight 106.9 kg (235 lb 10.8 oz) 2024 11:21 PM CDT Height 167.6 cm (5' 6) 03/04/2025 11:2 1 PM CDT Body Mass Index 38.04 03/04/2025 11:21 PM CDT Plan of Treatment Health Maintenance Due Date Last Done Comments Hepatitis C Virus (HCV) Screening 2001 Human Papillomavirus (HPV) Immunization (2 - 3-dose series) 07/03/2020 06/05/2020 Meningococcal B Immunization (2 of 2 - Bexsero SCDM 2-dose series) 12/04/2020 06/05/2020 Pap Smear 2022 Influenza Immunization (#1) 04/10/202505/11, 06/05/2020, 05/02/2013, Additional history exists SARS-COV-2 Immunization (2 - 2024- season) 2025 11/27/2020 Respiratory Syncytial Virus (RSV) Immunization (Adult) (1 - 1-dose 75+ series) 2076 Hepatitis B Immunization Completed 012, 05/02/2011, 02/24/2011, Additional history exists Meningococcal Immunization (ACWY) Aged Out 06/05/2020 No longer eligible based on patient's age to complete this topic DTaP/Tdap/Td Immunization Discontinued 2022, 08/26/2012, 05/02/2011, Additional history exists TdaP Immunization Completed 07/14/2023, 05/02/2011 Pneumococcal Immunization Combined Aged Out No longer eligible based on patient's age to complete this topic Rotavirus Immunization Aged Out No lo nger eligible based on patient's age to complete this topic Medical Devices Implanted Type Area Turner Splitter Machine Operator Device Identifier Shelf Expiration Date Model / Serial / Lot 2.5 X 32mm Headless Compression Screw Implanted:Qty: 2 on 08/26/2023 by Nuno Stoll MD at [facility] Left: Elbow IRWIN [id number] / [id number] / [id number] 3.0 X 30mm Headed Screw Implanted:Qty: 1 on 08/26/2023 by Nuno Stoll MD at [facility] Left: Elbow [id number] / [id number] / [id number] 3.0 X 32mm Headed Screw Implanted:Qty: 1 on 08/26/2023 by Nuno Stoll MD at [facility] Left: Elbow IRWIN [id number] / [id number] / [id number] Procedures Procedure Name Priority Date/Time Associated Diagnosis Comments XR ELBOW MINIMUM 3 VIEWS LEFT STAT 03/05/2025 12:13 AM CDT from Last 3 Months Results * XR ELBOW MINIMUM 3 VIEWS LEFT (03/05/2025 12:13 AM CDT) Anatomical Region Laterality Modality UPPER EXTREMITY, elbow Left Digital R adiography 03/05/2025 12:5 9 AM CDT Impressions 03/05/2025 1:02 AM CDT IMPRESSION: Stable sequelae of open reduction and internal fixation of left lateral epicondyle. Narrative 03/05/2025 1:02 AM CDT EXAM DESCRIPTION: XR ELBOW MINIMUM 3 VIEWS LEFT REASON FOR STUDY: Left elbow pain x 1 day. Pt had surgery in August 2023, and states she feels the screws under the skin which she has not noted before. Denies recent injury. HX: Orif humerus decompression TECHNIQUE: Three radiographic views of the left elbow. . COMPARISON: Fluoroscopic spot images from open reduction and internal fixation of the left elbow of August 26, 2023. FINDINGS: BONES: For cancellous screws are seen in place fixating the lateral epicondyle, unchanged in alignment and appearance as compared to previous study. No acute fracture or dislocation is seen. The bones are in normal alignment. SOFT TISSUES: There is no appreciable fat pad displacement. The soft tissues are unremarkable. THIS IS AN ELECTRONICALLY VERIFIED FINAL REPORT 03/05/2025 12:59 AM - Electronically signed by Lulu Epps M.D. SN: SN Report ID: [id number] Reading Location: [id number] Procedure Note Lulu Epps MD - 03/05/2025 EXAM DESCRIPTION: XR ELBOW MINIMUM 3 VIEWS LEFT REASON FOR STUDY: Left elbow pain x 1 day. Pt had surgery in August 2023, and states she feels the screws under the skin which she has not noted before. Denies recent injury. HX: Orif humerus decompression TECHNIQUE: Three radiographic views of the left elbow. . COMPARISON: Fluoroscopic spot images from open reduction and internal fixation of the left elbow of August 26, 2023. FINDINGS: BONES: For cancellous screws are seen in place fixating the lateral epicondyle, unchanged in alignment and appearance as compared to previous study. No acute fracture or dislocation is seen. The bones are in normal alignment. SOFT TISSUES: There is no appreciable fat pad displacement. The soft tissues are unremarkable. THIS IS AN ELECTRONICALLY VERIFIED FINAL REPORT 03/05/2025 12:59 AM - Electronically signed by Lulu Epps M.D. SN: SN Report ID: [id number] Reading Location: [id number] IMPRESSION: Stable sequelae of open reduction and internal fixation of left lateral epicondyle. Geovanny Jeffery MD [facility] DIAGNOSTIC ORDERABLES Final Result from Last [address] [facility] Care Teams Sales Department Clerk Relationship Specialty Start Date End Date Donald Broussard MD [address] [place] [address] PCP - General Family Medicine 06/11/23
--- OUTSIDE RECORDS SUMMARY | 2025-04-15 10:07 | XMS_ITS | Clinical Summary ---
Author Organization [facility] Address [address] [place] [address] Care Team Providers Care Smasher Name Role Phone Donald Broussard MD Primary Care Provider [phone] Allergies Active Allergy Reactions Criticality Noted Date Comments Banana Edema,Anaphylaxis High 09/24/2018 Cantaloupe Edema Medium 09/24/2018 Medications bacitracin 500 unit/gram ointment Apply topically 2 (two) times a day 120 g 3 Active Additional Information Patient not taking.Reported on 01/05/2025 Slynd tablet tablet Take 1 each (4 mg total) by mouth daily Active HYDROcodone-cindy taminophen (NORCO) 5-325 mg per tabletIndicatio ns:Pain Take 1 tablet by mouth every 6 (six) hours as needed for pain 20 tablet 4 Active Additional Information Patient not taking.Reported on 01/05/2025 ibuprofen (ADVIL,MOTRIN) 600 mg tabletIndicatio ns:Pain Take 1 tablet (600 mg total) by mouth 3 (three) times a day Take with food. 30 tablet 4 Active Additional Information Patient not taking.Reported on 01/05/2025 mupirocin (BACTROBAN) 2 % ointment Apply topically 3 (three) times a day 22 g 3 5 Active Additional Information Patient not taking.Reported on 01/05/2025 triamcinolone (KENALOG) 0.1 % creamIndication s:Allergic contact dermatitis due to other agents Apply topically 2 (two) times a day as needed for irritation Apply to red rash areas on hands and abdomen twice daily as needed for up to 1 month 80 g 1 5 Active Active Problems Problem [...] staff should administer the PHQ-9) 4 12/25/2022 Hunger Vital Sign Answer Date Recorded Within the past 12 months, y ou worried that your food would run out before you got the money to buy more. Never true 01/06/20 25 Within the past 12 months, t he food you bought just didn't last and you didn't have money to get more. Never true 01/05/2025 Personal Safety Answer Date Recorded Have you ever been in or are you currently in a harmful physical or emotional relationship or is someone making you feel afraid or unsafe? 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 Gender Identity Female 12/23/2022 9:46 PM CDT Sexual Orientation Straight 12/23/2022 9: 46 PM CDT Obstetrics History Last Filed Vital Signs Vital Sign Reading Time Taken Comments Blood Pressure 121/56 12/04/2024 7:10 AM CDT Pulse 74 12/04/2024 7:10 AM CDT Temperature 36.9 C (98.4 F) 12/04/2024 7:10 AM CDT Respiratory Rate 15 12/04/2024 7:10 AM CDT Oxygen Saturation 98% 12/04/2024 7:10 AM CDT Inhaled Oxygen Concentration - - Weight 102.1 kg (225 lb) 12/04/2024 7:08 AM CDT Height 167.6 cm (5' 6) 12/04/2024 7:08 AM CDT Body Mass Index 36.32 12/04/2024 7:08 AM CDT Plan of Treatment Health Maintenance [...] - season) 2024 11/27/2020 Influenza Vaccine (#1) 2025 , 06/05/2020, 05/02/2013, Additional history exists DTaP/Tdap/Td Vaccine (8 - Td or Tdap) 07/14/2033 07/14/2023, 08/26/2012, 05/02/2011, Additional history exists Hepatitis B Screening Completed 09/30/2011 , 05/02/2011, 02/24/2011, Additional history exists Varicella Vaccines Completed 09/30/2011, 02/24/2011 Pneumococcal vaccine <65 Aged Out No longer eligible based on patient's age to complete this topic Care Teams Smasher Relationship Specialty Start Date End Date Donald Broussard MD PCP - General Family Medicine 12/25/22
[2025-04-15 10:13] VITALS: BP 125/73; PULSE 81; RESP 16; TEMP 36.5; O2SAT 98
--- NOTE | 2025-04-15 10:23 | ED.SKABFB ---
HPI - Skin/Abscess/Foreign Bdy General Chief complaint: Skin/Abscess/Foreign Body Stated complaint: rash on stomach/legs Time Seen by Provider: 04/15/25 10:15 Source: patient and RN notes reviewed Mode of arrival: ambulatory Limitations: no limitations History of Present Illness HPI narrative: 24-year-old female presents Express Care complaining of rash on her body for the last month. Patient says she has a history of this recurring rash. Patient says she might have been diagnosed with eczema but not entirely sure. Patient has been using a previously prescribed Kenalog cream without relief. Patient said since then the rash is starting to spread to her abdomen and legs. The rash is primarily on the patient's hands and arms. Patient reports the rash is pruritic. Patient denies any fevers, body aches, chills, nausea, vomiting, chest pain, difficulty breathing, swelling to the face, lips, tongue, throat in her symptoms. Related Data Allergies Allergy/AdvReac Type Severity Reaction Status Date / Time banana Allergy Severe Swelling Verified 10/26/24 10:43 of Lip/Tongue/Throat Review of Systems Review of Systems: CONSTITUTIONAL: Denies fever, chills, or sweats. EYES: Denies visual changes, redness, or discharge. ENT: Denies rhinorrhea, congestion, sore throat, or otalgia. CARDIOVASCULAR: Denies chest pain, palpitations, or edema. RESPIRATORY: Denies cough or dyspnea. GASTROINTESTINAL: Denies abdominal pain, nausea, vomiting, or diarrhea. GENITOURINARY: Denies dysuria or hematuria. SKIN: Positive for rash and itching. MUSCULOSKELETAL: Denies back pain, joint pain, or myalgia. NEUROLOGIC: Denies headache, numbness, or weakness. PSYCHIATRIC: Denies anxiety or depression. All other systems reviewed are negative, except as documented in HPI. [facility] Past Medical History Medical History Eczema Depression Hx of migraines Surgical History Surgical History Hx of elbow surgery internal fixation with screws left Social History Social History Smoking status: Never smoker Alcohol intake: current Alcohol use details: social Substance use type: does not use Living arrangements: with family Gender identity (if verbalized by the patient): Female Comments At the time of my signature, I reviewed and agree with the nursing past medical, surgical, social, and family history. There is no relevant family history pertinent to the patient complaint. Exam Narrative: GENERAL: This is a well-nourished, well-developed adult, in no apparent distress. They are non ill-appearing, nontoxic appearing. HEAD: normocephalic, atraumatic. EYES: Sclera clear/white. Conjunctiva normal. Vision is grossly intact. Extraocular movements intact EARS: External ears normal, Hearing grossly intact. NOSE: External nose normal THROAT: Mucous membranes moist, NECK: Neck supple, CARDIOVASCULAR: Regular rate and rhythm RESPIRATORY: Respiratory rate normal, respiratory effort nonlabored, no respiratory distress SKIN: Erythematous macular papular, vesicular rash scattered throughout the patient's arms, abdomen, and legs. There is a grouped papular vesicular lesions to the patient's right hand between her 3rd and 4th digit digit. Rashes nontender, no area of fluctuance, no induration. No exudate. NEURO: awake, alert, and oriented to person, place and time. There were no obvious focal neurologic abnormalities. EXTREMITIES: No joint tenderness, effusion, or edema noted. Course Course Emergency Course: Portions of this record may have been created with voice recognition software Level of Care: Express Care Visit Vital Signs Vital signs: Vital Signs Temperature 97.7 F 04/15/25 10:13 Pulse Rate 81 04/15/25 10:13 Respiratory Rate 16 04/15/25 10:13 Blood Pressure 125/73 04/15/25 10:13 Pulse Oximetry 98 04/15/25 10:13 Oxygen Delivery Room Air 04/15/25 10:13 Temperature 97.7 F 04/15/25 10:13 Pulse Rate 81 04/15/25 10:13 Respiratory Rate 16 04/15/25 10:13 Blood Pressure 125/73 04/15/25 10:13 Pulse Oximetry 98 04/15/25 10:13 Oxygen Delivery Room Air 04/15/25 10:13 Reviewed MDM - Skin/Abscess/Foreign Bdy MDM Narrative Medical decision making narrative: Likely patient has atopic dermatitis. Status scattered throughout her body will go ahead and give her a course of steroids and prescribed a stronger dose of Kenalog cream. Discussed physical exam findings. Advised supportive measures and signs/symptoms to go to the ER. Pt is appropriate for outpt treatment and f/u. Differential Diagnosis Differential diagnosis: Likely urticaria, eczema and contact dermatitis Critical Care Time Critical Care Time Critical Care Time: No Discharge Plan Discharge Clinical Impression: Atopic dermatitis Qualifiers: Atopic dermatitis type: unspecified Qualified Code(s): L20.9 - Atopic dermatitis, unspecified Patient Disposition: Home Condition: Stable Instructions: Antibiotic Form, Eczema (ED) Additional Instructions: Take the prednisone as directed, take in the morning take with food. Use the triamcinolone cream as directed. Do not apply this cream to your face. Also use thick creams or ointments such as Aquaphor to help with dry skin. Avoid any fragrance lotions. Follow-up with PCP 3-5 days. Developed any difficulty breathing, swelling of the face, lips, throat, or any serious problems please go to the ER immediately. Patient Language: Latvian Prescriptions: New triamcinolone acetonide 0.5 % cream 1 applic topical BID 7 Days Qty: 15 0RF Rx Instructions: Do not apply to face or genitals. prednisone 20 mg tablet 40 mg PO DAILY 5 Days Qty: 10 0RF No Action triamcinolone acetonide 0.1 % ointment 1 applic topical BID Qty: 80 0RF Rx Instructions: apply to rash up to 2 x daily, never apply to the face Follow-up/Referrals: Bobo,Donald Gore MD [Primary Care Provider, Unknown] Stand Alone Forms: Work/School Release IP Time of Disposition: 10:21
== END 2025-04-15 10:28 | disposition home or self-care (01) ==
PROVIDERS: PCP Family Medicine
DX: L20.9 Atopic dermatitis, unspecified (principal)
CPT/HCPCS: 99213; G0463